=== PATIENT | female | born 1935 | race Caucasian/White ===

== ENCOUNTER 2025-03-18 13:50 | Outpatient (CLI) | payer MEDICARE, BC, SELFPAY | END 2025-03-18 13:51 | disposition home or self-care (01) | LOC: ANHAUDIO 13:50 | PROVIDERS: PCP Family Medicine; Visit Provider Family Medicine | DX: H90.3 Sensorineural hearing loss, bilateral (principal); H74.8X3 Other specified disorders of middle ear and mastoid, bilateral; H61.23 Impacted cerumen, bilateral; Z97.4 Presence of external hearing-aid | CPT/HCPCS: 92557; 92567; 99199 ==

== ENCOUNTER 2025-03-24 15:23 | Outpatient (RCR) | payer SELFPAY | END 2025-04-21 23:59 | disposition home or self-care (01) | LOC: ANHAUDIO 15:23 | PROVIDERS: PCP Family Medicine; Visit Provider Family Medicine | DX: Z46.1 Encounter for fitting and adjustment of hearing aid (principal) | CPT/HCPCS: V5267 ==

== ENCOUNTER 2025-04-18 07:23 | Outpatient (RCR) | payer MEDICARE, BC, SELFPAY ==
--- NOTE | 2025-03-10 09:42 | WNDPHOTO ---
PHOTO ONLY - See Nursing Notes and/ or assessments for documentation.
[2025-03-10 10:08] VITALS: BMI 21.2
== END 2025-05-26 09:59 | disposition home or self-care (01) ==
LOC: ANHWOC 07:23
PROVIDERS: PCP Family Medicine; Visit Provider Family Medicine
DX: S81.802A Unspecified open wound, left lower leg, initial encounter (principal)
CPT/HCPCS: 99212; 99213; 99214; G0463

== ENCOUNTER 2025-06-03 12:02 | Outpatient (CLI) | payer MEDICARE, BC, SELFPAY ==
[2025-06-03 13:27] LABS: Hematocrit 44.5 % (37.0-47.0); Hemoglobin 14.7 g/dL (12.0-15.0); Immature Granulocyte Percent A 0.2 % (0-0.5); Lymphocytes Absolute Auto 1.52 K/mm3 (0.9-3.2); Mean Corpuscular HGB Conc 33.0 g/dl (32-36); Mean Corpuscular Hemoglobin 34.1 pg (26-34); Mean Corpuscular Volume 103.2 fl (80-100); Nucleated Red Blood Cells Absolute Auto 0.000 K/mm3 (0.0-0.012); Nucleated Red Blood Cells Perc 0.0 % (0.0-0.2); Platelet Count Result 175 k/mm3 (150-375); Red Blood Count 4.31 M/mm3 (4.2-5.4); White Blood Count 6.2 K/mm3 (4.5-10.0)
[2025-06-03 13:47] LABS: Add Urine Microscopic? YES; Appearance Urine Clear (Clear); Glucose Urine UA Negative (Negative); Leukocyte Esterase Ur Trace LEU/UL (Negative); Need Manual Microscopic Reviewed; Nitrate Urine Negative (Negative); Non Pathogenic Casts 0-2; Specific Grav Ur 1.005 (1.001-1.035)
[2025-06-03 14:10] LABS: Alanine Aminotransferase 39 U/L (6-35); Albumin Level 4.4 g/dL (3.5-5.1); Alkaline Phosphatase 100 U/L (38-126); Anion Gap 9 mmol/L (4-12); Aspartate Amino Transferase 47 U/L (14-36); Bilirubin,Total 0.8 mg/dL (0.2-1.3); Blood Urea Nitrogen 30 mg/dL (7-17); Calcium 10.0 mg/dL (8.4-10.2); Carbon Dioxide 27 mmol/L (22-30); Chloride 100 mmol/L (98-107); Cholesterol 210 mg/dL (0-200); Estimated Glomerular Filt Rate 42; Glucose 111 mg/dL (65-110); HDL Direct 76 mg/dL; Magnesium 2.2 mg/dL (1.6-2.3); Potassium 4.6 mmol/L (3.4-5.0); Sodium 136 mmol/L (137-145); Total Protein 7.6 g/dL (6.3-8.2); Triglycerides 76 mg/dL (<150)
[2025-06-03 14:46] LABS: Thyroid Stimulating Hormone 1.480 uIU/mL (0.465-4.680)
[2025-06-03 15:04] LABS: Vitamin B12 460.0 pg/mL (239-931)
== END 2025-06-03 12:03 | disposition home or self-care (01) ==
PROVIDERS: Nurse Practitioner Family; PCP Family Medicine; Visit Provider Family Medicine
DX: R30.0 Dysuria (principal); I49.5 Sick sinus syndrome; I10 Essential (primary) hypertension; E78.5 Hyperlipidemia, unspecified; R60.9 Edema, unspecified; Z79.899 Other long term (current) drug therapy
CPT/HCPCS: 36415; 80053; 80061; 81001; 82306; 82607; 83735; 84443; 85025; 87086

== ENCOUNTER 2025-06-08 16:27 | Emergency (ER) | payer MEDICARE, BC, SELFPAY ==
--- OUTSIDE RECORDS SUMMARY | 2024-12-16 04:15 | XMS_ITS ---
Author Organization [facility] Address [address] [place] [address] Care Team Providers Care Sand Caster Apprentice Name Role Phone Marge Fragoso MDh Primary Care Provider Unavailab Paul Norris Unavailable [phone] Allergies Allergen (clinical drug ingredient) Drug/Non Drug [...] Provider Diagnosis [facility] [address] [facility] [address] [place] [address] 12/16/2024 Paul Fragoso Essential hypertensi on I10 [...] * Kell BEYDOB:1935 ( 89 yo F)Acc No.[id number]:12/16/2024 Progress Notes Patient: Kell GALARZA Provider: Brian Fragoso M.D., Nerissa :1935 A ge:89 Y S ex:Female Date:12/16/2024 Address:[address] [place] [address] Pcp:Paul Fragoso MD Subjective: * Chief Complaints: [...] Osteoporosis, Lymphedema idiopathic r arm, Former smoker, [facility] dwp 07/01, Abnormal ECG, Ceellulitis r [...] Electronic signature of Paul Fragoso MD, FACP, [id number] on 06/08/2025 at 06:09 PM EST Sign off status: Pending * Provider: Brian Fragoso M.D., F.A.C.P. Date: 0 12/16/2024 Generated for Andrewsi aneta/Bibiana/eTransmitting on: 1 08/08/2024 06:09 PM EST History and Physical Notes * [...]
--- NOTE | ~2025-06-08 | XR_ITS ---
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 Findings: No acute fracture or malalignment. Moderate to severe tricompartmental degenerative changes with small effusion. Soft tissues unremarkable. Impression: No acute fracture or malalignment. Reviewed, dictated and finalized at location P. OGRAPHIC PRINTING MACHINIST Impression: No acute fracture or malalignment.
--- NOTE | ~2025-06-08 | XR_ITS ---
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 Findings: There are remote appearing fractures of the distal radius and ulna. No acute fracture is identified. Moderate degenerative changes noted of the carpal joints with severe degenerative changes of the first metacarpal carpal joint. Soft tissue swelling is noted. Impression: No acute fracture or malalignment. Reviewed, dictated and finalized at location P. SCREEN FRAME ASSEMBLER Impression: No acute fracture or malalignment.
--- NOTE | ~2025-06-08 | XR_ITS ---
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 Findings: Nondisplaced left intertrochanteric fracture. Moderate degenerative changes. Soft tissues unremarkable. Impression: Left intertrochanteric fracture Reviewed, dictated and finalized at location P. DHOUSE FIRER/FIREMAN Impression: Left intertrochanteric fracture
--- NOTE | ~2025-06-08 | XR_ITS ---
EXAMINATION: XR shoulder LT min 2V, 06/08/2025 17:45 LICENSED PSYCHOLOGIST DIRECTOR HISTORY: pain s/p fall COMPARISON: No comparisons available. Findings: No acute fracture or malalignment. Moderate degenerative changes. Soft tissues unremarkable. Impression: No acute fracture or malalignment. Reviewed, dictated and finalized at location P. NSED PSYCHOLOGIST DIRECTOR Impression: No acute fracture or malalignment.
--- NOTE | ~2025-06-08 | XR_ITS ---
EXAMINATION: XR elbow LT min 3V, 06/08/2025 17:45 AMMUNITION STORAGE SUPERINTENDENT HISTORY: L elbow pain s/p fall COMPARISON: No comparisons available. Findings: There is a healing impacted comminuted appearing fracture of the supracondylar humerus. There is a displaced comminuted fracture of the proximal ulna with intra-articular extension. There are severe degenerative changes. Soft tissue swelling is noted. Impression: Fractures detailed above Reviewed, dictated and finalized at location P. MUNITION STORAGE SUPERINTENDENT Impression: Fractures detailed above
--- NOTE | ~2025-06-08 | XR_ITS ---
EXAMINATION: XR chest 1V portable COMPARISON: No comparisons available. HISTORY: pre op FINDINGS: The lungs are clear, no effusion. No pneumothorax. Heart is normal size. Mediastinal and hilar contours are within normal limits. Bony thorax no acute abnormality. Miscellaneous: None Impression: No acute cardiopulmonary abnormality. Reviewed, dictated and finalized at location P. ING MACHINE OPERATOR Impression: No acute cardiopulmonary abnormality.
[2025-06-08 16:26] VITALS: BP 98/59; PULSE 66; RESP 20; TEMP 36.7; O2SAT 98
--- NOTE | 2025-06-08 16:36 | ED.FALL ---
HPI - Fall General Chief Complaint: Fall <KYLE Sun Last Filed: 06/08/25 19:44> Stated Complaint: fall <KYLE Sun Last Filed: 06/08/25 19:44> Source: patient <KYLE Sun Last Filed: 06/08/25 19:44> Mode of arrival: EMS <KYLE Sun Last Filed: 06/08/25 19:44> Limitations: no limitations <KYLE Sun Last Filed: 06/08/25 19:44> History of Present Illness HPI Narrative: Patient is an 89-year-old female who presents the ED via EMS with report of a fall. Patient reports she was working out in her garden when she tripped and fell onto her left side. Denies hitting head or losing consciousness. Denies syncope/dizziness. Complains of pain and swelling to left elbow, pain to L hip. EMS commented on slight external rotation of left lower extremity. Patient denies numbness. Denies any other areas of pain. She is on Eliquis 2.5 mg b.i.d.. History of AFib and pacemaker. <KYLE Sun Last Filed: 06/08/25 19:44> Related Data Home Medications: Home Medications ?Medication ?Instructions ?Recorded ?Confirmed ?Last Taken ?Type biotin 5 mg tablet 5 mg PO DAILY 03/03/25 06/03/25 03/10/25 History valacyclovir 500 mg tablet 500 mg PO DAILY 03/03/25 06/03/25 03/10/25 History <KYLE Sun Last Filed: 06/08/25 19:44> Allergies/Adverse Reactions: Allergies Allergy/AdvReac Type Severity Reaction Status Date / Time lidocaine Allergy Intermediate Rash Verified 06/08/25 16:45 bee venom protein (honey Allergy Mild Drowsy Verified 06/08/25 16:45 bee) (bees) latex Allergy Mild Drowsy Verified 06/08/25 16:45 <KYLE Sun Last Filed: 06/08/25 19:44> Review of Systems Review of Systems: All systems reviewed & are unremarkable except as noted in HPI. <Jacqui Bragg PA-C - Last Filed: 06/08/25 19:44> All systems reviewed & are unremarkable except as noted in HPI and below <Jacqui Bragg PA-C - Last Filed: 06/08/25 19:44> PMFSH Social History Social History: Social History Smoking status: Never smoker <Jacqui Bragg PA-C - Last Filed: 06/08/25 19:44> Exam Narrative: GENERAL: Well appearing, well-nourished, non-toxic, in no acute distress. HEAD: Normocephalic, atraumatic. RESPIRATORY: Airway patent, respirations nonlabored. Clear to auscultation bilaterally, no rales, rhonchi, wheezing. CARDIOVASCULAR: Regular rate and rhythm without murmurs, rubs, or gallops. Peripheral pulses intact. ABDOMINAL: Soft, nontender, nondistended. Normoactive BS. MUSCULOSKELETAL: No significant shortening or external rotation of LLE appreciated. TTP over L lateral hip joint. Sensation intact throughout LLE. Large amount of swelling to olecranon of L elbow w/ focal tenderness and bruising, limited ROM. Mild TTP over L posterior proximal humerus. No significant tenderness throughout L wrist joint. Sensation intact throughout LUE. No appreciable tenderness throughout C/T/L midline spine. SKIN: Warm, dry, normal color. NEURO: A&O X3. Speech clear. Cranial nerves II-XII grossly intact. No ataxic movements. PSYCHIATRIC: Appropriate mood and affect. Normal interaction. <Jacqui Bragg PA-C - Last Filed: 06/08/25 19:44> Course COOK SOUP/PA Physician Supervision This visit was performed by both a physician and an Advanced Practice Provider. I performed all aspects of the Medical Decision Making as documented. <Jimmie Aguillon MD - Last Filed: 06/09/25 03:18> Vital Signs Vital signs: Vital Signs Temperature 36.7 C 06/08/25 16:26 Pulse Rate 66 06/08/25 16:26 Respiratory Rate 20 06/08/25 16:26 Blood Pressure 98/59 L 06/08/25 16:26 Pulse Oximetry 98 06/08/25 16:26 Oxygen Delivery Room Air 06/08/25 16:26 Temperature 36.7 C 06/08/25 16:26 Pulse Rate 63 06/08/25 18:06 Respiratory Rate 20 06/08/25 20:49 Blood Pressure 142/89 H 06/08/25 20:49 Pulse Oximetry 88 L 06/08/25 20:49 Oxygen Delivery Room Air 06/08/25 16:26 <Jacqui Bragg PA-C - Last Filed: 06/08/25 19:44> Vital Signs Temperature 36.7 C 06/08/25 16:26 Pulse Rate 66 06/08/25 16:26 Respiratory Rate 20 06/08/25 16:26 Blood Pressure 98/59 L 06/08/25 16:26 Pulse Oximetry 98 06/08/25 16:26 Oxygen Delivery Room Air 06/08/25 16:26 Temperature 36.7 C 06/08/25 16:26 Pulse Rate 63 06/08/25 18:06 Respiratory Rate 20 06/08/25 20:49 Blood Pressure 142/89 H 06/08/25 20:49 Pulse Oximetry 88 L 06/08/25 20:49 Oxygen Delivery Room Air 06/08/25 16:26 <Jimmie Aguillon MD - Last Filed: 06/09/25 03:18> MDM - Fall MDM Narrative Medical decision making narrative: Patient presented to ED s/p ground level mechanical fall, pain to L hip/L elbow. Denies HI/LOC. VSS upon arrival. Patient in NAD. X-ray of left hip showing nondisplaced intertrochanteric fracture of left femur X-ray of left elbow: healing impacted comminuted appearing fracture of the supracondylar humerus. There is a displaced comminuted fracture of the proximal ulna with intra-articular extension. X-ray of left wrist and left shoulder negative Patient neurovascularly intact. Good pulses and sensation throughout extremities Discussed case with Dr. Stack, orthopedics, reviewed imaging, recommended transfer for trauma eval Discussed case with Dr. Lowe, EDP @ [facility], accepted patient for transfer. Patient and family are in agreement with plan and need for transfer. Laboratory studies were obtained and grossly normal. EKG without concerning changes. Corcoran catheter placed. <Jacqui Bragg PA-C - Last Filed: 06/08/25 19:44> Medical Records Attestation: I reviewed the patient's medical records. <Jacqui Bragg PA-C - Last Filed: 06/08/25 19:44> Lab Data Attestation: I reviewed the patient's lab results. <Jacqui Bragg PA-C - Last Filed: 06/08/25 19:44> Result diagrams: 06/08/25 17:19 06/08/25 17:19 <Jacqui Bragg PA-C - Last Filed: 06/08/25 19:44> Labs: Lab Results 06/08/25 Range/Units 17:19 WBC 5.7 (4.5-10.0) K/mm3 RBC 3.95 L (4.2-5.4) M/mm3 Hgb 13.4 (12.0-15.0) g/dL Hct 41.0 (37.0-47.0) % MCV 103.8 H (80-100) fl MCH 33.9 (26-34) pg MCHC 32.7 (32-36) g/dl RDW 14.1 (11.5-14.5) % Plt Count 172 (150-375) k/mm3 MPV 10.6 H (7.4-10.4) fl Immature Gran % (Auto) 0.4 (0-0.5) % Neut % (Auto) 66.7 (45.5-73.1) % Lymph % (Auto) 23.4 (18.3-44.2) % [place] % (Auto) 6.7 (2.6-8.5) % Eos % (Auto) 1.4 (0-4.4) % Baso % (Auto) 1.4 H (0.2-1.2) % Lymph # (Auto) 1.32 (0.9-3.2) K/mm3 Independence # (Auto) 0.4 (0.1-0.6) K/mm3 Eos # (Auto) 0.1 (0-0.3) K/mm3 Baso # (Auto) 0.1 (0.0-0.1) K/mm3 Abs Immat Gran (auto) 0.02 (0.00-0.031) K/mm3 Absolute Neuts (auto) 3.8 (1.3-6.7) K/mm3 Absolute Nucleated RBC 0.000 (0.0-0.012) K/mm3 Nucleated RBC % 0.0 (0.0-0.2) % PT 13.9 (11.1-14.7) Seconds INR 1.1 APTT 25.5 (22.3-36.8) Seconds Sodium 138 (137-145) mmol/L Potassium 4.5 (3.4-5.0) mmol/L Chloride 102 (98-107) mmol/L Carbon Dioxide 29 (22-30) mmol/L Anion Gap 7 (4-12) mmol/L BUN 33 H (7-17) mg/dL Creatinine 1.39 H (0.7-1.0) mg/dL Estim Creat Clear Calc 21 ml/min Estimated GFR 36 L (59 - ) Glucose 197 H (65-110) mg/dL Calcium 9.9 (8.4-10.2) mg/dL Total Bilirubin 0.6 (0.2-1.3) mg/dL AST 29 (14-36) U/L ALT 23 (6-35) U/L Alkaline Phosphatase 85 (38-126) U/L Total Protein 6.8 (6.3-8.2) g/dL Albumin 4.0 (3.5-5.1) g/dL <Jacqui Bragg PA-C - Last Filed: 06/08/25 19:44> Lab Results 06/08/25 Range/Units 17:19 WBC 5.7 (4.5-10.0) K/mm3 RBC 3.95 L (4.2-5.4) M/mm3 Hgb 13.4 (12.0-15.0) g/dL Hct 41.0 (37.0-47.0) % MCV 103.8 H (80-100) fl MCH 33.9 (26-34) pg MCHC 32.7 (32-36) g/dl RDW 14.1 (11.5-14.5) % Plt Count 172 (150-375) k/mm3 MPV 10.6 H (7.4-10.4) fl Immature Gran % (Auto) 0.4 (0-0.5) % Neut % (Auto) 66.7 (45.5-73.1) % Lymph % (Auto) 23.4 (18.3-44.2) % Independence % (Auto) 6.7 (2.6-8.5) % Eos % (Auto) 1.4 (0-4.4) % Baso % (Auto) 1.4 H (0.2-1.2) % Lymph # (Auto) 1.32 (0.9-3.2) K/mm3 Independence # (Auto) 0.4 (0.1-0.6) K/mm3 Eos # (Auto) 0.1 (0-0.3) K/mm3 Baso # (Auto) 0.1 (0.0-0.1) K/mm3 Abs Immat Gran (auto) 0.02 (0.00-0.031) K/mm3 Absolute Neuts (auto) 3.8 (1.3-6.7) K/mm3 Absolute Nucleated RBC 0.000 (0.0-0.012) K/mm3 Nucleated RBC % 0.0 (0.0-0.2) % PT 13.9 (11.1-14.7) Seconds INR 1.1 APTT 25.5 (22.3-36.8) Seconds Sodium 138 (137-145) mmol/L Potassium 4.5 (3.4-5.0) mmol/L Chloride 102 (98-107) mmol/L Carbon Dioxide 29 (22-30) mmol/L Anion Gap 7 (4-12) mmol/L BUN 33 H (7-17) mg/dL Creatinine 1.39 H (0.7-1.0) mg/dL Estim Creat Clear Calc 21 ml/min Estimated GFR 36 L (59 - ) Glucose 197 H (65-110) mg/dL Calcium 9.9 (8.4-10.2) mg/dL Total Bilirubin 0.6 (0.2-1.3) mg/dL AST 29 (14-36) U/L ALT 23 (6-35) U/L Alkaline Phosphatase 85 (38-126) U/L Total Protein 6.8 (6.3-8.2) g/dL Albumin 4.0 (3.5-5.1) g/dL <Jimmie Aguillon MD - Last Filed: 06/09/25 03:18> Imaging Data Attestation: I personally reviewed and interpreted this imaging study as follows: <Jacqui Bragg PA-C - Last Filed: 06/08/25 19:44> Radiologist's impression: ITS Impressions Elbow X-Ray 06/08/25 18:12 Impression: Fractures detailed above Hip/Pelvis X-Ray 06/08/25 18:13 Impression: Left intertrochanteric fracture Shoulder X-Ray 06/08/25 18:14 Impression: No acute fracture or malalignment. Wrist X-Ray 06/08/25 18:14 Impression: No acute fracture or malalignment. Chest X-Ray 06/08/25 19:01 Impression: No acute cardiopulmonary abnormality. <Jacqui Bragg PA-C - Last Filed: 06/08/25 19:44> ECG Data EKG #1: Attestation: I personally reviewed and interpreted this ECG as follows: <Jacqui Bragg PA-C - Last Filed: 06/08/25 19:44> ECG completion date: 06/08/25 <Jacqui Bragg PA-C - Last Filed: 06/08/25 19:44> ECG completion time: 19:07 <Jacqui Bragg PA-C - Last Filed: 06/08/25 19:44> EKG Interpretation: normal rate (60), sinus rhythm and no ST changes <Jacqui Bragg PA-C - Last Filed: 06/08/25 19:44> Pacemaker function: normal pacer function <KYLE Sun Last Filed: 06/08/25 19:44> Discharge Plan Discharge Clinical Impression: Fall from ground level, Closed intertrochanteric fracture of femur, Fracture of proximal end of left ulna <KYLE Sun Last Filed: 06/08/25 19:44> Patient Disposition: Acute Care Hospital <VANESA SunC - Last Filed: 06/08/25 19:44> Condition: Stable <KYLE Sun Last Filed: 06/08/25 19:44> Patient Language: Chilean <KYLE Sun Last Filed: 06/08/25 19:44> Prescriptions: No Action valacyclovir 500 mg tablet 500 mg PO DAILY biotin 5 mg tablet 5 mg PO DAILY Eliquis 2.5 mg tablet 2.5 mg PO BID Qty: 180 1RF atorvastatin [Lipitor] 40 mg tablet 40 mg PO DAILY Qty: 90 1RF olmesartan 20 mg tablet 20 mg PO DAILY Qty: 90 1RF verapamil 180 mg tablet extended release 180 mg PO DAILY Qty: 90 1RF flecainide 100 mg tablet 100 mg PO Q12H Qty: 180 1RF <KYLE Sun Last Filed: 06/08/25 19:44> Follow-up/Referrals: Alexandr Peres MD [Primary Care Provider, Family Practice] <KYLE Sun Last Filed: 06/08/25 19:44>
--- OUTSIDE RECORDS SUMMARY | 2025-06-08 17:09 | XMS_ITS | Clinical Summary ---
Author Organization [facility] [address] [facility] [address] Address [address] [place] [address] Care Team Providers Care Salesperson [employer] Name Role Phone Alexandr Peres MD Primary Care Provider [phone] Allergies Active Allergy Reactions Criticality Noted Date Comments Venom-Honey Bee Unknown 03/25/2025 Medications Jublia 10 % solution with applicator APPLY TO AFFECTED TOE NAILS AND FINGER NAILS EVERY EVENING 01/20/2025 Active Eliquis 2.5 mg tablet Take 1 tablet (2.5 mg total) by mouth 2 (two) times a day 01/29/2025 Active verapamil SR (CALAN SR) 180 mg CR tablet Take 1 tablet (180 mg total) by mouth daily 02/14/2025 Active atorvastatin (LIPITOR) 40 mg tablet Take by mouth nightly 03/20/2025 Active flecainide (TAMBOCOR) 100 mg tablet Take 1 tablet (100 mg total) by mouth 2 (two) times a day 12/13/2024 Active olmesartan (BENICAR) 20 mg tablet Take 1 tablet (20 mg total) by mouth daily Active Active Problems Problem Noted Date Diagnosed Date Essential hypertension 03/25/2025 Mixed hyperlipidemia 03/25/2025 Chronic anticoagulation 03/25/2025 Cardiac pacemaker in situ 03/25/2025 Overview (03/25/2025): Medtronic Casco Dual Pacemaker. Dx; SSS, PAF. DOI 06/24/2020-elsewhere. Carelink remote. 03/25/25-requested remote transfer. PAF (paroxysmal atrial fibrillation) 03/25/2025 Cardiomyopathy 03/25/2025 Lipid screening 03/25/2025 Encounters Date Type Department Care Team Description 03/31/2025 Telephone [facility] [address] [place] [phone] Richard Hdez MD 03/25/2025 11:30 AM CDT Office Visit [facility] [address] [place] [phone] Richard Hdez MD Lipid screening (Primary Dx); Cardiomyopathy, unspecified type (HCC); PAF (paroxysmal atrial fibrillation); Cardiac pacemaker in situ; Chronic anticoagulation; Mixed hyperlipidemia; Essential hypertension 03/25/2025 11:00 AM CDT Ancillary Procedure [address] [address] SSS (sick sinus syndrome) (HCC); Atrial fibrillation, unspecified type (HCC); Pacemaker 03/25/2025 Orders Only [facility] [address] [place] [phone] Richard Hdez MD SSS (sick sinus syndrome) (HCC) (Primary Dx); Atrial fibrillation, unspecified type (HCC); Pacemaker 03/24/2025 Telephone [facility] [address] [place] [phone] Richard Hdez MD 03/24/2025 Telephone [facility] [address] [place] [phone] Richard Hdez MD 03/24/2025 Telephone [facility] [address] [place] [phone] Richard Hdez MD 03/21/2025 Telephone [facility] [address] [place] [phone] Richard Hdez MD Medical Records Request; Scheduling Appointments from Last 3 Months Surgical History Surgery Date Site/Laterality Comments INSERT / REPLACE / REMOVE PACEMAKER Medical History Medical History Date Comments Cardiomyopathy Atrial fibrillation (HCC) Hypertension Hyperlipidemia Sick sinus syndrome (HCC) Chronic kidney disease Family History Medical History Relation Name Comments Heart disease Father Brain Aneurysm Mother Relation Name Status Comments Father Mother Social History Tobacco Use Types Packs/Day Years Used Date Smoking Tobacco: Unknown Tobacco Cessation:Counseling Given: Not Answered Comments Unknown Sex and Gender Information Value Date Recorded Sex Assigned at Not on file Legal Sex Female 9:40 AM CDT Gender Identity Not on file Sexual Orientation Not on file Last Filed Vital Signs Vital Sign Reading Time Taken Comments Blood Pressure 122/70 03/25/2025 11:22 AM CDT Pulse 76 03/25/2025 11:22 AM CDT Temperature - - Respiratory Rate 14 03/25/2025 11:22 AM CDT Oxygen Saturation 94% 03/25/2025 11:22 AM CDT Inhaled Oxygen Concentration - - Weight 53.1 kg (117 lb) 03/25/2025 11:22 AM CDT Height 157.5 cm (5' 2) 03/25/2025 11:22 AM CDT Body Mass Index 21.4 03/25/2025 11:22 AM CDT Plan of Treatment Health Maintenance Due Date Last Done Comments Depression Screening 1935 Osteoporosis Screening-Bone Density Scan 1935 DTaP/Tdap/Td Vaccine (1 - Tdap) 1948 Hepatitis B Screening 10/05/1955 Pneumococcal vaccine 65+ (1 of 1 - PCV) 10/05/1987 Zoster Vaccine (1 of 2) 10/05/1987 Well Visit 65+ 2002 Influenza Vaccine (#1) 2025 Fall Risk Assessment 03/25/2026 03/25/2025 Procedures Procedure Name Priority Date/Time Associated Diagnosis Comments ELECTROCARDIOGRAM REPORT Routine 025 12:47 PM CDT Cardiomyopathy, unspecified type (HCC) POCT LIPID PANEL Routine 03/25/2025 11:3 1 AM CDT Lipid screening DEVICE CHECK - IN OFFICE Routine 025 11:18 AM CDT SSS (sick sinus syndrome) (HCC) Atrial fibrillation, unspecified type (HCC) Pacemaker from Last 3 Months Results * Electrocardiogram Report (03/25/2025 12:47 PM CDT) Richard Hdez MD ECG ORDERABLES Edited Re sult - Final * (ABNORMAL) POCT lipid panel (03/25/2025 11:31 AM CDT) Cholesterol, POC 193 <200 MG/DL HDL, POC 59 >=40 mg/dL Triglycerides, POC 223(A) <=149 mg/dL LDL Cholesterol POC 90 <=129 mg/dL Chol/HDL Ratio, POC 3.3 NONE Non-HDL Cholesterol, POC 134 NONE mg/dL Cholesterol Total, POC 193 30 - 199 mg/dL Capillary blood 03/25/2025 1 1:31 AM CDT Richard Hdez MD POINT OF CARE TEST ORDERA BLES Final Result * DEVICE CHECK - IN OFFICE (03/25/2025 11:18 AM CDT) Anatomical Region Laterality Modality Other Narrative 03/25/2025 1:26 PM CDT Medtronic Dalia Dual Pacemaker. Dx; SSS, PAF. DOI 06/24/2020-elsewhere. Carelink remote. 03/25/25-requested remote transfer. Supervising MD: Dr Hdez. Office DDD Pacemaker evaluation demonstrated appropriate device function. Left pectoral incision well healed without signs of infection noted. Battery function: 3.0 V, 8.6 years remaining battery life to SHIRA. Appropriate lead measurements noted. Presenting rhythm- AP VS. Underlying rhythm- V sensed, junctional/bradycardia. AP- 99.8%, SLP- 1.6%. 1 Atrial high rate episode noted, iegm Atach lasting 6 minutes in duration. No Ventricular high rate episodes noted. Medications; Eliquis, flecainide, verapamil. Atrial amplitude increased to 2.0 V. See scanned report. Office device f/u expected in one year. CareLink remote f/u 07/02/2025. Zonia Rice, RN us Richard Hdez MD [facility] Final Result from Last 3 Months Insurance [facility] OOS MEDICARE Care Teams Salesperson [employer] Relationship Specialty Start Date End Date Alexandr Peres MD [address] [place] [address] PCP - General Family Practice 03/25/25
--- OUTSIDE RECORDS SUMMARY | 2025-06-08 17:09 | XMS_ITS | Patient Health Record ---
Author Organization [facility] [employer] [facility] Address [address] [place] [address] Care Team Providers Care Rug Hooker Name Role Phone PERFECTO BATEMAN, DOLA Primary Care Provider UnavailMarko Knapp Unavailable [phone] Allergies Allergen (clinical drug ingredient) Drug/Non Drug Allergy documented on EMR Reaction Allergy Type Onset Date Status spironolactone Aldactone Unknown Drug Allergy Ac tive Penicillin Unknown Drug Allergy Active Reason For Referral No Information Medications Medication SIG (Take, Route, Frequency, Duration) Notes Start Date End Date Status Aspir-Low 81 MG 1 tablet Orally Once a day Active Ocuvite - Orally QD Active Biotin 5000 MCG 1 capsule Orally Onc e a day Active Olmesartan Medoxomil 20 MG 1 tablet Oral ly Once a day; Duration: 30 day(s) Active Eliquis 2.5 MG One tablet Orally Tw ice a day Active Flecainide Acetate 50 MG One tablet Oral ly Twice a day Active Verapamil HCl ER 180 MG 1 tablet Orally Once a day; Duration: 30 day(s) Active valACYclovir HCl 500 MG 1 tablet Orally Once a day; Duration: 10 day(s) Active Atorvastatin Calcium 40 MG 1 tablet Oral ly Once a day Active amLODIPine Besylate 10 MG 1 tablet Orall y Once a day Active Vitamin B-12 1000 MCG 1 tablet Orally On ce a day Active hydroCHLOROthiazide 25 MG 1 tablet in th e morning Orally Once a day; Duration: 30 day(s) Active Vitamin D 1000 UNIT 1 capsule Orally Onc e a day Active Immunizations Vaccine Route Administration Date Status Comme nts zzPPA Unknown 10/13/2016 Pending Social History Tobacco Use: Social History Observation Description Date Details (start date - stop date) Never Smoker NA - NA Tobacco Use/Smoking Question Answer Notes Status: nonsmoker Alcohol Screen Question Answer Notes Did you have a drink contain ing alcohol in the past year? Yes How often did you have a dri nk containing alcohol in the past year? 4 or more times a week (4 points) How many drinks did you have on a typical day when you were drinking in the past year? 1 or 2 drinks (0 point) How often did you have 6 or more drinks on one occasion in the past year? Never (0 point) Points 4 Interpretation Positive Problems Problem Type SNOMED Code ICD Code Onset Dates Problem Status W/U Status Risk Notes Problem Flatulence, eructation and gas pain (824077768) Flatulence, eructation and gas pain (R14.3) Active confirmed Plan Of Treatment No Information Insurance Providers Payer Name Payer Address Payer Phone Subscriber Number Group Number Insured Name Patient Relationship to Insured Coverage Start Date Coverage End Date MEDICARE PRIMARY WPS-[employer] [address] [place] [address] [id number] JOSE BUSH Self - patient is the insured 3 BC [address] [place] [address] [id number] JOSE BUSH Self - patient is the insured 7 7 BCBS [address] [place] [address] [id number] JOSE BUSH Self - patient is the insured 3 Medical (General) History Medical History History ICD Code Hypertension Hyperlipidemia Osteoporosis Basal cell carcinoma Lymphedema Hypercholesterolemia Surgical History Surgery Date(Month/Year) Cataract removal Achilles tendon repair Left wrist fracture
--- OUTSIDE RECORDS SUMMARY | 2025-06-08 17:09 | XMS_ITS | Patient Health Record ---
Author Organization [facility] Address [address] [facility] [address] [place] [address] Care Team Providers Care On Air Host Name Role Phone Fouzia BATEMAN, Norman Primary Care Provider Unavailab johnie OdomlucianaCricket Unavailable [phone] Reason For Referral No Information Medications Medication SIG (Take, Route, Frequency, Duration) Notes Start Date End Date Status Vitamin D 400 UNIT Orally A ctive Biotin 3 MG Orally Active Atorvastatin Calcium 40 MG 1 tablet Oral ly Once a day Active amLODIPine Besylate 10 MG 1 tablet Orall y Once a day Active Aspir-81 81 MG 1 tablet Orally Once a day Active Immunizations Vaccine Route Administration Date Status Comme nts Pneumococcal Unknown 10/26/2015 Administered Influenza Unknown 04/26/2015 Pending Problems Problem Type SNOMED Code ICD Code Onset Dates Problem Status W/U Status Risk Notes Problem 595392688 Bilateral primar y osteoarthritis of knee (M17.0) Active confirmed Problem 560203617363499 Pain in right kn ee (M25.561) Active confirmed Problem 82919599 Pain in left kne e (M25.562) Active confirmed Problem 36032032 Unsteadiness on feet (R26.81) Active confirmed Problem 54220346 Pain in left hip (M25.552) Active confirmed Problem 15171613 *Osteoarthritis unspecified, unspecified site (M19.90) Active confirmed Problem 6203091 Trochanteric bursitis, 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) Active confirmed Plan Of Treatment No Information Insurance Providers Payer Name Payer Address Payer Phone Subscriber Number Group Number Insured Name Patient Relationship to Insured Coverage Start Date Coverage End Date MEDICARE WPS [address] [place] [address] [id number] Kell Bey Self - patient is the insured [facility] [address] [place] [address] [id number] Kell Bey Self - patient is the insured Medical (General) History Medical History History ICD Code hypertension cholesterol Surgical History Surgery Date(Month/Year) tonsillectomy and adenoidectomy
--- OUTSIDE RECORDS SUMMARY | 2025-06-08 17:09 | XMS_ITS | Patient Health Record ---
Author Organization [facility] Address [address] [place] [address] Care Team Providers Care Transmission Repairer Name Role Phone Fouzia BATEMAN, Strong Primary Care Provider Unavailab Paul Norris Unavailable [phone] Allergies Allergen (clinical drug ingredient) Drug/Non Drug Allergy documented on EMR Reaction Allergy Type Onset Date Status spironolactone Aldactone tomás Drug Allergy Ac tive penicillin G Penicillin G Sodium Unknown Drug Allergy Active Results Component Value Reference Range Notes ELECTROCARDIOGRAM, COMPLETE Reviewed date:08/11/2024 05:41:05 PM Interpretation: Performing Lab: Notes/Report: Ventricular Rate 72 BPM Atrial Rate 70 BPM P-R Interval 284 ms QRS Duration 96 ms Q-T Interval 596 ms QTC Calculation(Bazett) 652 ms Calculated P [place] 34 degrees Calculated R [place] 10 degrees Calculated T [place] 252 degrees Diagnosis Atrial-paced rhythm with prolonged AV conduction Nonspecific T wave abnormality Prolonged QT Abnormal ECG When compared with ECG of 27-JUL-2023 11:18, Nonspecific T wave abnormality, improved in Lateral leads QT has lengthened Confirmed by Jewel Ro ([id number]) on 08/11/2024 2:59:26 PM Signed by: Jewel Ro MD on 08/11/2024 2:59 PM CBC W/DIFF (outpatient) Reviewed date:11/22/2024 03:02:52 PM Interpretation: Performing Lab: Notes/Report: WBC 6.6 4.5 - 10.0 10e3/uL RBC 4.23 3.9 - 5.1 10e6/uL HGB 14.3 11.7 - 16.0 g/dL HCT 44.5 34.1 - 44.3 % MCV 105.3 83.7 - 101.6 fL MCH 33.9 26.1 - 33.5 pg MCHC 32.2 30.0 - 35.3 g/dL RDW 13.8 10.5 - 15.5 % PLT CT 191 150 - 400 10e3/uL MPV 8.9 5.0 - 13.1 fL LYMPH% 20.8 17.4 - 48.2 % MONO% 8.2 3.0 - 10.5 % NEUT% 68.3 43.4 - 76.2 % EOS% 1.5 0.0 - 6.0 % BASO% 1.2 0.0 - 3.0 % ABS. LYMPH 1.40 1.2 - 3.0 10e3/uL ABS. MONO 0.50 0.15 - 0.80 10e3/uL ABS. NEUT 4.50 1.2 - 6.8 10e3/uL ABS. EOS 0.10 0.0 - 0.50 10e3/uL ABS. BASO 0.10 0.0 - 0.2 10e3/uL COMPREHENSIVE METABOLIC PANE L Reviewed date:11/22/2024 03:02:52 PM Interpretation: Performing Lab: Notes/Report: SODIUM 134 135 - 147 mmol/L POTASSIUM 4.3 3.5 - 5.5 mmol/L CHLORIDE 99 97 - 110 mmol/L CO2 31.0 18 - 33 mmol/L GLUCOSE 101 65 - 140 mg/dL FASTING: < 10 0 mg/dL BUN 29 7 - 25 mg/dL CREATININE 1.04 0.5 - 1.5 mg/dL BUN/CREAT RATIO 27.90 5.00 - 25.00 Ratio GFR 52 >= 60 mL/minute CALCIUM 10.4 8.5 - 10.5 mg/dL PROTEIN, TOTAL 6.8 6.1 - 8.1 g/dL ALBUMIN 4.4 3.4 - 5.1 g/dL GLOBULIN 2.4 1.7 - 3.7 g/dL A/G RATIO 1.8 0.6 - 3.1 Ratio ALKALINE PHOSPHATASE 108 40 - 150 IU/L SGOT (AST) 15 10 - 50 IU/L SGPT (ALT) 13 2 - 50 IU/L BILIRUBIN, TOTAL 0.5 0.0 - 1.2 mg/dL LIPID PANEL Reviewed date:06/18/2024 01:15:51 PM Interpretation: Performing Lab: Notes/Report: FASTING CHOLESTEROL 238 130 - 200 mg/dL TRIGLYCERIDES 153 10 - 149 mg/dL HDL 71.0 > 40 mg/dL CHOL/HDL RATIO 3.4 < 5.0 RATIO VLDL 31 18 - 41 mg/dL LDL 136 < 130 mg/dL COMPREHENSIVE METABOLIC PANE L Reviewed date:06/18/2024 01:15:51 PM Interpretation: Performing Lab: Notes/Report: FASTING SODIUM 140 135 - 147 mmol/L POTASSIUM 4.2 3.5 - 5.5 mmol/L CHLORIDE 102 97 - 110 mmol/L CO2 28.0 18 - 33 mmol/L GLUCOSE 113 65 - 140 mg/dL FASTING: < 10 0 mg/dL BUN 30 7 - 25 mg/dL CREATININE 1.36 0.5 - 1.5 mg/dL BUN/CREAT RATIO 22.10 5.00 - 25.00 Ratio GFR 38 >= 60 mL/minute CALCIUM 10.4 8.5 - 10.5 mg/dL PROTEIN, TOTAL 7.0 6.1 - 8.1 g/dL ALBUMIN 4.3 3.4 - 5.1 g/dL GLOBULIN 2.7 1.7 - 3.7 g/dL A/G RATIO 1.6 0.6 - 3.1 Ratio ALKALINE PHOSPHATASE 74 40 - 150 IU/L SGOT (AST) 18 10 - 50 IU/L SGPT (ALT) 17 2 - 50 IU/L BILIRUBIN, TOTAL 0.7 0.0 - 1.2 mg/dL CBC W/DIFF (outpatient) Reviewed date:06/18/2024 01:15:51 PM Interpretation: Performing Lab: Notes/Report: FASTING WBC 10.7 4.5 - 10.0 10e3/uL RBC 4.17 3.9 - 5.1 10e6/uL HGB 14.5 11.7 - 16.0 g/dL HCT 44.6 34.1 - 44.3 % MCV 107.1 83.7 - 101.6 fL MCH 34.8 26.1 - 33.5 pg MCHC 32.5 30.0 - 35.3 g/dL RDW 14.0 10.5 - 15.5 % PLT CT 212 150 - 400 10e3/uL MPV 8.6 5.0 - 13.1 fL LYMPH% 10.7 17.4 - 48.2 % MONO% 5.7 3.0 - 10.5 % NEUT% 82.9 43.4 - 76.2 % EOS% 0.6 0.0 - 6.0 % BASO% 0.1 0.0 - 3.0 % ABS. LYMPH 1.10 1.2 - 3.0 10e3/uL ABS. MONO 0.60 0.15 - 0.80 10e3/uL ABS. NEUT 8.90 1.2 - 6.8 10e3/uL ABS. EOS 0.10 0.0 - 0.50 10e3/uL ABS. BASO 0.00 0.0 - 0.2 10e3/uL HGB A1C Reviewed date:06/18/2024 01:15:51 PM Interpretation: Performing Lab: Notes/Report: FASTING HGB A1C 6.1 4.0 - 6.0 % 5.7% TO 6.4% IS DIAGNOSED PREDIABETES 6.5% OR HIGHER INDICATES DIABETES CPK Reviewed date:06/18/2024 01:15:50 PM Interpretation: Performing Lab: Notes/Report: FASTING CPK 49 45 - 235 IU/L Reason For Referral No Information Medications Medication SIG (Take, Route, Frequency, Duration) Notes Start Date End Date Status Aspir-81 81 MG 1 tablet Orally Once a day Active Ocuvite Orally Active Flecainide Acetate 50 mg 1 tablet Orally twice a day Active Verapamil HCl ER 180 MG 1 tablet Orally Once a day; Duration: 90 days Active Eliquis 2.5 MG TAKE 1 TABLET BY [...] e a day; Duration: 30 day(s) Active Immunizations Vaccine Route Administration Date Status Comme nts Arexvy Unknown 05/02/2023 Administered Covid Moderna Bivalent Unknown 04/26/2022 Administered Covid-19 Pfizer Unknown 08/18/2020 Administered Covid-19 Pfizer Unknown 09/08/2020 Administered Covid-19 Pfizer Unknown 05/13/2021 Administered Covid-19 Pfizer Unknown 04/18/2023 Administered Covid-19 Pfizer Unknown 04/03/2024 Administered Flu Vac Unknown 07/17/2010 Administered Flu Vac Unknown 04/20/2012 Administered friend who i s japanese professor Flu Vac Unknown 05/17/2013 Administered japanese professor s office Flu Vac High dose Unknown 05/07/[address] in [place] office Flu Vac High dose Unknown 04/21/2015 Administered Flu Vac High dose Unknown 05/24/2016 Administered Flu Vac High dose Unknown 05/17/2017 Administered Flu Vac High dose Unknown 05/29/2018 Administered Flu Vac High dose Unknown 04/30/2019 Administered Flu Vac High dose Unknown 03/17/2020 Administered Flu Vac High dose Unknown 04/22/2021 Administered Flu Vac High dose Unknown 04/06/2022 Administered Flu Vac High dose Unknown 04/11/2023 Administered Flu Vac High dose Unknown 04/03/2024 Administered Pneumovax ( < 64 yrs) Unknown 07/17/2001 Administered Prevnar > 65 Unknown 04/21/2015 Administered Shingrix Unknown 10/31/2017 Administered Shingrix Unknown 05/01/2018 Administered Zostavax Unknown 04/06/2012 Administered county Zostavax Unknown 10/28/2017 Administered Problems Problem Type SNOMED Code ICD Code Onset Dates Problem Status W/U Status Risk Notes Problem Hyperglycemia (99832061) Hyperglycemia (R73.9) Active confirmed Problem Hyperlipidemia (47433624) Other and unspecified hyperlipidemia (E78.5) Active confirmed Problem Osteoporosis (96965450) Osteoporosis (M81.0) Active confirmed Problem Essential hypertension (48383713) Essential hypertension (I10) Active confirmed Problem Ataxia (21535361) Ataxia (R27.0) Active confirm ed Problem Atrial fibrillation (92888224) Paroxysmal a-fib (I48.0) Active confirmed Problem Macrocytosis - no anemia (922548340) Macrocytosis without anemia (D75.89) Active confirmed Problem Abnormal ECG (682937644) Abnormal ECG (R94.31) Active confirmed Problem Basal cell carcinoma of skin (148418885) Basal cell carcinoma of other specified sites of skin (C44.91) Active confirmed Problem Lymphedema (689518890) Other lymphedema (I89.0) Active confirmed Problem Sacroiliitis (55844059) Sacroiliitis (M46.1) Active confirmed Problem Difficulty walking (336729744) Difficulty walking (R26.2) Active confirmed Problem Atherosclerosis of aorta (25054951) Aortic atherosclerosis (I70.0) Active confirmed Problem Chronic kidney disease stage 3A (disorder) (230471537) Stage 3a chronic kidney disease (CKD) (N18.31) Active confirmed Vital Signs Heart Rate 65 /min 11/21/2024 Respiratory Rate 12 /min 11/21/2024 Blood pressure diastolic 95 mm Hg 11/21/2024 Height 63 in 11/21/2024 Blood pressure systolic 140 mm Hg 11/21/2024 Weight 118 lbs 06/17/2024 BMI 20.9 kg/m2 06/17/2024 Encounters Encounter Location Date Provider Diagnosis [facility] [address] [place] [address] [address] [place] [address] 06/17/2024 Paul Fouzia Essential hypertensi on I10 ; Other and unspecified hyperlipidemia E78.5 ; Hyperglycemia R73.9 and Paroxysmal a-fib I48.0 [facility] [address] [place] [address] [address] [place] [address] [facility] walking R 26.2 ; Essential hypertension I10 ; Paroxysmal a-fib I48.0 ; Stage 3a chronic kidney disease (CKD) N18.31 ; Ataxia R27.0 and Aortic atherosclerosis I70.0 [facility] [address] [place] [address] [address] [place] [address] 07/16/2024 [facility] [address] [place] [address] [address] [place] [address] 07/22/2024 Paul Fouzia Assessments Encounter Date Diagnosis (ICD Code) Assessment Notes Treatment Notes Treatment Clinical Notes Section Notes 06/17/2024 Essential hypertension (ICD-10 - I10) 11/21/2024 Essential hypertension (ICD-10 - I10) 11/21/2024 Difficulty walking (ICD-10 - R26.2) already evaluated by neuro moving to [facility] encouraged to get training officer board certified and let them directcare 11/21/2024 Paroxysmal a-fib (ICD-10 - I48.0) 06/17/2024 Other and unspecified hyperlipidemia (ICD-10 - E78.5) 06/17/2024 Hyperglycemia (ICD-10 - R73.9) 11/21/2024 Stage 3a chronic kidney disease (CKD) (ICD-10 - N18.31) 11/21/2024 Ataxia (ICD-10 - R27.0) 06/17/2024 Paroxysmal a-fib (ICD-10 - I48.0) 11/21/2024 Aortic atherosclerosis (ICD-10 - I70.0) Plan Of Treatment Pending Test Test Name Order Date COLONOSCOPY AND BIOPSY 01/05/2016 HGB A1C 11/04/2021 VITAMIN B12 12/02/2022 MEASLES/RUBEOLA IGG 11/08/2018 Insurance Providers Payer Name Payer Address Payer Phone Subscriber Number Group Number Insured Name Patient Relationship to Insured Coverage Start Date Coverage End Date MEDICARE [address] [place], [place] [id number] Kell Bey Self - patient is the insured [address] [place], [place] [id number] Kell Bey Self - patient is the insured Medical (General) History Medical History History ICD Code hyperlipidemia diverticulosis hypertension basal cell carcinoma/?? melanoma it situ dr jaky mac r arm sadoff osteoporosis lymphedema idiopathic r arm Former smoker Z87.891 [facility] dwp 07/01 Abnormal ECG ceellulitis r ue 08/[address] paige afib dr ro ckd 3a Surgical History Surgery Date(Month/Year) cataracts achilles tendon r l wrist fx dr alegre
[2025-06-08] MEDS: fentaNYL CITRATE INJ (*CRX) 100 MCG/2 ML VIAL 25 MCG IV PUSH (17:23)
[2025-06-08 18:06] VITALS: BP 160/97; PULSE 63; RESP 15; O2SAT 97
--- NOTE | 2025-06-08 18:14 | ECG_ITS ---
Test Date: 2025-06-08 19:07:14 Measurements Intervals [place] Rate: 60 P: 263 KS: 288 QRS: -16 QRSD: 110 T: 138 QT: 440 QTc: 440 Interpretive Statements ELECTRONIC ATRIAL PACEMAKER LOW QRS VOLTAGE IN PRECORDIAL LEADS [QRS DEFLECTION < 1.0 mV IN CHEST LEADS] POSSIBLE ANTERIOR MYOCARDIAL INFARCTION , PROBABLY OLD [30 ms Q WAVE IN V3/V4, OR R < 0.2 mV IN V4] ABNORMAL RHYTHM ECG No previous ECG available for comparison Electronically Signed On 06-08-2025 20:00:33 [employer] by Krista Jerez M.D.
[2025-06-08 18:21] LABS: Hematocrit 41.0 % (37.0-47.0); Hemoglobin 13.4 g/dL (12.0-15.0); Immature Granulocyte Percent A 0.4 % (0-0.5); Lymphocytes Absolute Auto 1.32 K/mm3 (0.9-3.2); Mean Corpuscular HGB Conc 32.7 g/dl (32-36); Mean Corpuscular Hemoglobin 33.9 pg (26-34); Mean Corpuscular Volume 103.8 fl (80-100); Nucleated Red Blood Cells Absolute Auto 0.000 K/mm3 (0.0-0.012); Nucleated Red Blood Cells Perc 0.0 % (0.0-0.2); Platelet Count Result 172 k/mm3 (150-375); Red Blood Count 3.95 M/mm3 (4.2-5.4); White Blood Count 5.7 K/mm3 (4.5-10.0)
[2025-06-08 18:30] LABS: Alanine Aminotransferase 23 U/L (6-35); Albumin Level 4.0 g/dL (3.5-5.1); Alkaline Phosphatase 85 U/L (38-126); Anion Gap 7 mmol/L (4-12); Aspartate Amino Transferase 29 U/L (14-36); Bilirubin,Total 0.6 mg/dL (0.2-1.3); Blood Urea Nitrogen 33 mg/dL (7-17); Calcium 9.9 mg/dL (8.4-10.2); Carbon Dioxide 29 mmol/L (22-30); Chloride 102 mmol/L (98-107); Estimated CRCL calculation 21 ml/min; Estimated Glomerular Filt Rate 36; Glucose 197 mg/dL (65-110); Potassium 4.5 mmol/L (3.4-5.0); Sodium 138 mmol/L (137-145); Total Protein 6.8 g/dL (6.3-8.2)
[2025-06-08 18:34] LABS: INR 1.1; Prothrombin Time 13.9 Seconds (11.1-14.7)
[2025-06-08 18:35] LABS: Partial Thromboplastin Time 25.5 Seconds (22.3-36.8)
[2025-06-08] MEDS: MORPHINE SULFATE (*CRX) 4 MG/ML INJ 2 MG IV PUSH ×2 (20:03→20:47)
[2025-06-08] MEDS: ONDANSETRON INJ 4 MG/2 ML VIAL IV PUSH (20:03)
[2025-06-08 20:49] VITALS: BP 142/89; RESP 20; O2SAT 88
== END 2025-06-08 20:51 | disposition short-term general hospital (02) ==
PROVIDERS: Emergency Provider Physician Assistant; PCP Family Medicine
DX: S72.145A Nondisplaced intertrochanteric fracture of left femur, initial encounter for closed fracture (principal); S52.092A Other fracture of upper end of left ulna, initial encounter for closed fracture; I48.91 Unspecified atrial fibrillation; Z79.01 Long term (current) use of anticoagulants; Z95.0 Presence of cardiac pacemaker; W01.0XXA Fall on same level from slipping, tripping and stumbling without subsequent striking against object, initial encounter; Y93.H2 Activity, gardening and landscaping
CPT/HCPCS: 36415; 51702; 71045; 73030; 73080; 73110; 73502; 73564; 80053; 85025; 85610; 85730; 93005; 96374; 96375; 96376; 99285; J2270; J2405; J3010

== ENCOUNTER 2025-07-15 14:26 | Outpatient (CLI) | payer MEDICARE, BC, SELFPAY ==
--- OUTSIDE RECORDS SUMMARY | 2024-12-16 04:15 | XMS_ITS ---
Author Organization [facility] Address [address] [place] [address] Care Team Providers Care Rail Grinder Name Role Phone Marge Fragoso MDh Primary Care Provider Unavailab Paul Norris Unavailable [phone] Allergies Allergen (clinical drug ingredient) Drug/Non Drug Allergy documented on EMR Reaction Allergy Type Onset Date Status spironolactone Aldactone tomás Drug Allergy Ac tive penicillin G Penicillin G Sodium Unknown Drug Allergy Active REASON FOR VISIT 6 month f/u Medications Medication SIG (Take, Route, Frequency, Duration) Notes Start Date End Date Status Eliquis 2.5 MG TAKE 1 TABLET BY BENJY TWICE A DAY FOR 30 DAYS; Duration: 90 Active valACYclovir HCl 500 MG TAKE 1 TABLET BY MOUTH EVERY DAY; Duration: 90 Active Atorvastatin Calcium 40 MG 1 tablet Oral ly Once a day; Duration: 90 days Active Olmesartan Medoxomil 20 MG TAKE 1 TABLET BY MOUTH EVERY DAY Orally Once a day Active Biotin 5000 MCG 1 capsule Orally Onc e a day; Duration: 30 day(s) Active Aspir-81 81 MG 1 tablet Orally Once a day Active Ocuvite Orally Active Flecainide Acetate 50 mg 1 tablet Orally twice a day Active Verapamil HCl ER 180 MG 1 tablet Orally Once a day; Duration: 90 days Active Encounters Encounter Location Date Provider Diagnosis [facility] [address] [facility] [address] [place] [address] 12/16/2024 Paul Fragoso Essential hypertensi on I10 ; Other and unspecified hyperlipidemia E78.5 ; Macrocytosis without anemia D75.89 ; Hyperglycemia R73.9 and Paroxysmal a-fib I48.0 Assessments Encounter Date Diagnosis (ICD Code) Assessment Notes Treatment Notes Treatment Clinical Notes Section Notes 12/16/2024 Essential hypertension (ICD-10 - I10) 12/16/2024 Other and unspecified hyperlipidemia (ICD-10 - E78.5) 12/16/2024 Macrocytosis without anemia (ICD-10 - D75.89) 12/16/2024 Hyperglycemia (ICD-10 - R73.9) 12/16/2024 Paroxysmal a-fib (ICD-10 - I48.0) Plan Of Treatment No Information Progress Notes * Kell BEYDOB:1935 ( 89 yo F)Acc No.[id number]:12/16/2024 Progress Notes Patient: Kell GALARZA Provider: Brian Fragoso M.D., Nerissa :1935 A ge:89 Y S ex:Female Date:12/16/2024 Address:[address] [place] [address] Pcp:Paul Fragoso MD Subjective: * Chief Complaints: * 1 . 6 month f/u. * HPI: O ffice Visit: ... P atient is in for followup of chronic medical problems. They include. * ROS: O LD LABS REVIEWED As per HPI all other ROS negative . * Medical History: H yperlipidemia, Diverticulosis, Hypertension, Basal cell carcinoma/?? melanoma it situ dr jaky mac r arm sadoff, Osteoporosis, Lymphedema idiopathic r arm, Former smoker, [facility] dwp 07/01, Abnormal ECG, Ceellulitis r ue 08/03, Skin ca dr paige, Afib dr ceja, Ckd 3a. * Surgical History: c ataracts , achilles tendon r , l wrist fx dr alegre . * Family History: M other: 30 yrs, cerebral aneurysm. F ather: 94 yrs, old age. S ister: alive 82 yrs, colon ca, diagnosed with Cancer. D aughter: alive 59 yrs, well. S on: 56 yrs, ?? cancer icb aml. S on: alive 64 yrs, well. 2 son(s) , 1 daughter(s) . . * Social History: T obacco Use: T obacco Use/Smoking . D rugs/Alcohol: D rugs H ave you used drugs other than those for medical reasons in the past 12 months? No, Marijuana? No. A lcohol Screen D id you have a drink containing alcohol in the past year?: Yes, How often did you have a drink containing alcohol in the past year?: 4 or more times a week (4 points), How many drinks did you have on a typical day when you were drinking in the past year?: 1 or 2 drinks (0 point), How often did you have 6 or more drinks on one occasion in the past year?: Never (0 point), Points: 4, Interpretation: Positive. s moked for 20 yrs quit 35 yrs ago. * Medications: T aking Biotin 5000 MCG Capsule 1 capsule Orally Once a day , Taking Aspir-81 81 MG Tablet Delayed Release 1 tablet Orally Once a day , Taking Ocuvite Tablet Orally , Taking Flecainide Acetate 50 mg Tablet 1 tablet Orally twice a day , Taking Verapamil HCl ER 180 MG Tablet Extended Release 1 tablet Orally Once a day , Taking Eliquis 2.5 MG Tablet TAKE 1 TABLET BY MOUTH TWICE A DAY FOR 30 DAYS , Taking valACYclovir HCl 500 MG Tablet TAKE 1 TABLET BY MOUTH EVERY DAY , Taking Atorvastatin Calcium 40 MG Tablet 1 tablet Orally Once a day , Taking Olmesartan Medoxomil 20 MG Tablet TAKE 1 TABLET BY MOUTH EVERY DAY Orally Once a day , Medication List reviewed and reconciled with the patient * Allergies: P enicillin G Sodium, Aldactone: tomás. Objective: * Vitals: * P ast Orders: L ab:CBC W/DIFF (outpatient) (Order Date - 11/21/2024) (Collection Date & Time - 11/21/2024 02:29 PM) Value Reference Range WBC 6.6 4.5 - 10.0 - 10e3/uL RED BLOOD CELL COUNT 4.23 3.9 - 5.1 - 10e6/uL HEMOGLOBIN 14.3 11.7 - 16.0 - g/dL HEMATOCRIT 44.5 H 34.1 - 44.3 - % MCV 105.3 H 83.7 - 101.6 - fL MCH 33.9 H 26.1 - 33.5 - pg MCHC 32.2 30.0 - 35.3 - g/dL RDW 13.8 10.5 - 15.5 - % PLATELET COUNT 191 150 - 400 - 10e3/uL ABSOLUTE BASOPHILS 0.10 0.0 - 0.2 - 10e3/uL ABSOLUTE LYMPHOCYTES 1.40 1.2 - 3.0 - 10e3/uL ABSOLUTE EOSINOPHILS 0.10 0.0 - 0.50 - 10e3/u L MPV 8.9 5.0 - 13.1 - fL ABSOLUTE MONOCYTES 0.50 0.15 - 0.80 - 10e3/u L ABSOLUTE NEUTROPHILS 4.50 1.2 - 6.8 - 10e3/uL EOSINOPHILS 1.5 0.0 - 6.0 - % BASOPHILS 1.2 0.0 - 3.0 - % LYMPHOCYTES 20.8 17.4 - 48.2 - % MONOCYTES 8.2 3.0 - 10.5 - % NEUTROPHILS 68.3 43.4 - 76.2 - % L ab:COMPREHENSIVE METABOLIC PANEL (Order Date - 11/21/2024) (Collection Date & Time - 11/21/2024 02:29 PM) Value Reference Range GLUCOSE 101 65 - 140 - mg/dL BUN 29 H 7 - 25 - mg/dL CREATININE 1.04 0.5 - 1.5 - mg/dL BUN/CREAT RATIO 27.90 H 5.00 - 25.00 - Ratio eGFR 52 L >= 60 - mL/minute SODIUM 134 L 135 - 147 - mmol/L POTASSIUM 4.3 3.5 - 5.5 - mmol/L CHLORIDE 99 97 - 110 - mmol/L CO2 31.0 18 - 33 - mmol/L SGOT (AST) 15 10 - 50 - IU/L SGPT (ALT) 13 2 - 50 - IU/L BILIRUBIN, TOTAL 0.5 0.0 - 1.2 - mg/dL ALKALINE PHOSPHATSE 108 40 - 150 - IU/L CALCIUM 10.4 8.5 - 10.5 - mg/dL PROTEIN, TOTAL 6.8 6.1 - 8.1 - g/dL ALBUMIN 4.4 3.4 - 5.1 - g/dL GLOBULIN 2.4 1.7 - 3.7 - g/dL A/G RATIO 1.8 0.6 - 3.1 - Ratio * Examination: G eneral Examination: NECK/THYROID: n sahra supple carotid pulse normal, no JVD.?LUNGS: c lear to auscultation bilaterally. H EART: r egular rate and rhythm, S1, S2 normal, no S3, S4, no murmurs. E XTREMITIES: n o cyanosis, clubbing or edema. ? Assessment: * Assessment: 1. E ssential hypertension - I10 (Primary) 2 . O ther and unspecified hyperlipidemia - E78.5 3 . M acrocytosis without anemia - D75.89 4 .?Hyperglycemia - R73.9 5 . P aroxysmal a-fib - I48.0 Plan: * Treatment: * Images: * Electronic signature of Paul Fragoso MD, FACP, [id number] on 07/15/2025 at 03:40 PM EST Sign off status: Pending * Provider: Brian Fragoso M.D., F.A.C.P. Date: 0 12/16/2024 Generated for Andrewsi aneta/Bibiana/eTransmitting on: 1 03:40 PM EST History and Physical Notes * HPI (History of Present Illness) Category Sub-Category Detail Notes Category Not es Office Visit ... Patient is in fo r followup of chronic medical problems. They include Examination Category Sub-Category Detail Notes Category Not es General Examination NECK/THYROID: neck supple carotid pulse normal, no JVD HEART: regular rate and rhy thm, S1, S2 normal, no S3, S4, no murmurs LUNGS: clear to auscultatio n bilaterally EXTREMITIES: no cyanosis, clubbin g or edema
--- NOTE | ~2025-07-15 | DEXA_ITS ---
Bone Density Report Name: JOSE BUSH Age: 89 Sex: Female Ethnicity: White Date of : 1935 Indication: postmenopausal; screening for osteoporosis; height loss; prior fracture; Referring Provider: DE JANSEN Study: Bone densitometry was performed. Exam Date: July 15, 2025 Accession number: [id number] Bone Density: Region BMD T-score Z-score Classification AP Spine(L1, L2, L3) 0.692 -3.0 -0.2 Osteoporosis Femoral Neck (Right) 0.504 -3.1 -0.6 Osteoporosis Total Hip (Right) 0.718 -1.8 0.5 Osteopenia World Health Organization criteria for BMD impression classify patients as: Normal (T-score at or above -1.0), Osteopenia (T-score between -1.0 and -2.5), or Osteoporosis (T-score at or below -2.5). 10-year Fracture Risk: FRAX not reported because: Some T-score for Spine Total or Hip Total or Femoral Neck at or below -2.5 Prior hip or vertebral fracture Clinical Information Provided by Patient: Have had a previous hip or vertebral fracture Has had a low trauma fracture Patient maximum height was 65.0 Menopause Age: 55 Drinks caffeinated beverages Onset of menses at age 14 Number of children 3 Impression: The patient has established osteoporosis, based on the Right Femoral Neck T-score and the existence of a prior fracture. The patient has risk factors, including: previous fracture. Discussion: HIGH RISK OF FRACTURE. BONE DENSITY IS UNDESIRABLY LOW AT ONE OR MORE SKELETAL SITES, CONSISTENT WITH POSTMENOPAUSAL OSTEOPOROSIS. This patient's lowest T-score, in a patient who has previously fractured, meets the World Health Organization's (WHO) criteria for severe osteoporosis. In untreated patients, the risk of osteoporotic fracture increases approximately two-fold for each 1.0 SD decrease in T-score. Low bone density is not the only risk factor for fracture; also consider factors such as patient's age, frailty or poor health, risk of falling, risk of injury, previous osteoporotic fracture, family history of osteoporosis, cigarette smoking, low body weight, etc. Not everyone with low bone mineral density has osteoporosis; osteomalacia and other metabolic bone disorders should also be considered. Patients who have osteoporosis should be evaluated for specific diseases and conditions (secondary causes) that may cause or contribute to bone loss. The [place] [employer] Clinical Endocrinologists (AACE) and National Osteoporosis Foundation (NOF) recommend pharmacologic intervention for all postmenopausal women with a previous hip or vertebral fracture and a T-score in this range. The patient should follow a healthful lifestyle (good nutrition with adequate calcium and vitamin D, and appropriate weight-bearing exercise). Follow-Up: Consider a repeat BMD and Vertebral Fracture Assessment (VFA) exam in 2 years or sooner if medically necessary, to reassess this patient's status. Reported by: RD on 07/22/2025 1:14:00 PM. Reviewed, dictated and finalized at location A.
--- OUTSIDE RECORDS SUMMARY | 2025-07-15 14:39 | XMS_ITS | Patient Health Record ---
Author Organization [facility] Address [address] [facility] [address] [place] [address] Care Team Providers Care Process Safety Management Engineer Name Role Phone Fouzia BATEMAN, Bly Primary Care Provider Unavailab johnie OdomlucianaCricket Unavailable [phone] Reason For Referral No Information Medications Medication [...] Problem Status W/U Status Risk Notes Problem 380224750 Bilateral primar y osteoarthritis of knee (M17.0) Active confirmed Problem 837282206746218 Pain in right kn ee (M25.561) Active confirmed Problem 33259476 Pain in left kne e (M25.562) Active confirmed Problem 99271044 Unsteadiness on feet (R26.81) Active confirmed Problem 05501144 Pain in left hip (M25.552) Active confirmed Problem 52949038 *Osteoarthritis unspecified, unspecified site (M19.90) Active confirmed Problem 6671990 Trochanteric bursitis, 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) Active confirmed Plan Of Treatment No Information Insurance Providers Payer Name Payer Address Payer Phone Subscriber Number Group Number Insured Name Patient Relationship to Insured Coverage Start Date Coverage End Date MEDICARE WPS [address] [place] [address] [id number] Kell Bey Self - patient is the insured [facility] [address] [place] [address] [id number] Kell Bey Self - patient is the insured Medical (General) History Medical History History ICD Code hypertension cholesterol Surgical History Surgery Date(Month/Year) tonsillectomy and adenoidectomy
--- OUTSIDE RECORDS SUMMARY | 2025-07-15 14:40 | XMS_ITS | Clinical Summary ---
Author Organization [facility] [address] Address [address] [place] [address] Care Team Providers Care Optical Fabricator Name Role Phone Alexandr Peres MD Primary Care Provider [phone] Allergies Active Allergy Reactions Criticality Noted Date Comments Venom-Honey Bee Unknown 03/25/2025 Latex Other (See comments) Low 03/03/2025 Lidocaine Other (See comments) 06/08/2025 Unknown rxn Medications Jublia 10 % solution with applicator APPLY TO AFFECTED TOE NAILS AND FINGER NAILS EVERY EVENING 5 Active Eliquis 2.5 mg tablet Take 1 tablet (2.5 mg total) by mouth 2 (two) times a day 5 Active verapamil SR (CALAN SR) 180 mg CR tablet Take 1 tablet (180 mg total) by mouth daily 5 Active atorvastatin (LIPITOR) 40 mg tablet Take by mouth nightly 5 Active flecainide (TAMBOCOR) 100 mg tablet Take 1 tablet (100 mg total) by mouth 2 (two) times a day 5 Active olmesartan (BENICAR) 20 mg tablet Take 1 tablet (20 mg total) by mouth daily Active biotin 5 mg tablet Take 5 mg by mouth daily 5 Active acetaminophen 500 mg capsuleIndicati ons:Pain Take 2 capsules (1,000 mg total) by mouth every 6 (six) hours as needed for pain 5 Active methocarbamoL (ROBAXIN) 500 mg tablet Take 1 tablet (500 mg total) by mouth 3 (three) times a day as needed for muscle spasms Active senna (SENOKOT) 8.6 mg tabletIndicatio ns:constipation Take 2 tablets by mouth 2 (two) times a day 5 06/12/20 26 Active polyethylene glycol (MIRALAX) 17 gram/dose bulk powderIndicatio ns:constipation Take 17 g by mouth daily 5 Active HYDROcodone-hesham taminophen (NORCO) 5-325 mg per tabletIndicatio ns:Pain Take 1 tablet by mouth every 6 (six) hours as needed for pain for up to 7 days 28 tablet 5 07/15/20 25 Active oxyCODONE (ROXICODONE) 5 mg immediate release tabletIndicatio ns:Pain Take 0.5 tablets (2.5 mg total) by mouth every 4 (four) hours as needed for pain 07/08/20 Discontinu ed(Therapy completed) Active Problems Problem Noted Date Diagnosed Date Acute blood loss anemia 06/11/2025 Assessment & Plan (06/11/2025 11:41 AM COUPON AND BOND COLLECTION CLERK): - Hgb (06/10): 11.8g/dL - Hgb (06/11): 10.3g/dL Fall, initial encounter 06/09/2025 Closed fracture of left elbow 06/09/2025 Assessment & Plan (06/11/2025 11:38 AM COUPON AND BOND COLLECTION CLERK): - Orthopedic consult - CT L elbow (06/08): Comminuted and mildly displaced intra-articular fractures of trochlea and capitellum, which extend into the medial and lateral epicondyles respectively, comminuted and mildly displaced intra-articular fracture of olecranon process, possible nondisplaced fracture of the radial head. - non-operative management - remain in splint - NWB LUE - Follow up with Orthopedics Fracture of right scapula 06/09/2025 Assessment & Plan (06/11/2025 11:39 AM COUPON AND BOND COLLECTION CLERK): - CT chest/abdomen/pelvis (06/08): Cortical irregularity in the right scapula could represent scapular fracture, recommend correlation with point tenderness - Orthopedics consult - non-operative management - WBAT RUE - PT/OT - Follow up with Orthopedics Acute traumatic pain 06/09/2025 Assessment & Plan (06/10/2025 12:01 PM COUPON AND BOND COLLECTION CLERK): - Tylenol 1g q6h - Discontinued Flexeril - Robaxin 500mg TID PRN - Gabapentin 300mg HS- stopped related to dizziness - Oxycodone 2.5mg q4h PRN Discharge planning issues 06/09/2025 Assessment & Plan (06/11/2025 11:39 AM COUPON AND BOND COLLECTION CLERK): - 06/09: awaiting PT/OT evaluation, PO pain medication 06/10 POD #1, awaiting PT/OT recommendation for placement. - 06/11: Patient is medically stable for discharge, SW/CM updated. Discharge pending facility acceptance Treatment plan note [x] SSS (sick sinus syndrome) 06/08/2025 Assessment & Plan (06/09/2025 2:09 PM COUPON AND BOND COLLECTION CLERK): - Continue Flecainide 100mg BID - Continue Verapamil SR 180mg daily Nondisplaced intertrochanter ic fracture of left femur, initial encounter for closed fracture 06/08/2025 Assessment & Plan (06/11/2025 11:45 AM COUPON AND BOND COLLECTION CLERK): - Orthopedic consult - 06/09: DAYANA INTRAMEDULLARY NAILING FEMUR - ANTEGRADE - INTERTROCHANTERIC (Left) - WBAT LLE - PT/OT - 06/10 L leg dressing clean, dry. PT/OT following for placement recommendation. Pain well controlled.Mild dizziness and SBP 80-90, asymptomatic- 500 ml NS given with improvement of her BP post bolus. - Follow up with Orthopedics Essential hypertension 03/25/2025 Assessment & Plan (06/09/2025 2:08 PM COUPON AND BOND COLLECTION CLERK): - Hold Losartan 50mg daily Mixed hyperlipidemia 03/25/2025 Assessment & Plan (06/10/2025 11:59 AM COUPON AND BOND COLLECTION CLERK): - Atorvastatin 40mg HS -resumed Chronic anticoagulation 03/25/2025 Cardiac pacemaker in situ 03/25/2025 Overview (03/25/2025): Medtronic Dalia Dual Pacemaker. Dx; SSS, PAF. DOI 06/24/2020-elsewhere. [facility] remote. 03/25/25-requested remote transfer. PAF (paroxysmal atrial fibrillation) 03/25/2025 Cardiomyopathy 03/25/2025 Lipid screening 03/25/2025 Encounters Date Type Department Care Team Description 07/03/2025 3:56 PM COUPON AND BOND COLLECTION CLERK - 07/03/2025 11:59 PM COUPON AND BOND COLLECTION CLERK Hospital Encounter [facility] [address] [place] [id number] Acute pain of left knee Discharge Disposition: Discharge to home or self care 07/03/2025 2:20 PM COUPON AND BOND COLLECTION CLERK Office Visit [facility] [address] [place] [address] for [facility] 6th [place] [address] [place] [address] Berna Case MD Closed fracture of olecranon process of left ulna with routine healing, subsequent encounter (Primary Dx); Closed fracture of right scapula, unspecified part of scapula, initial encounter; Nondisplaced intertrochanteric fracture of left femur, initial encounter for closed fracture; Acute pain of left knee 07/03/2025 1:45 PM COUPON AND BOND COLLECTION CLERK - 07/03/2025 11:59 PM COUPON AND BOND COLLECTION CLERK Hospital Encounter [facility] [place] [facility] ([facility]) [address] [place] [id number] Closed fracture of olecranon process of left ulna with routine healing, subsequent encounter; Closed fracture of right scapula, unspecified part of scapula, initial encounter; Nondisplaced intertrochanteric fracture of left femur, initial encounter for closed fracture Discharge Disposition: Discharge to home or self care 07/01/2025 7:30 AM COUPON AND BOND COLLECTION CLERK Ancillary Procedure [facility] [address] [facility] [address] [place] [phone] SSS (sick sinus syndrome) (HCC); Atrial fibrillation, unspecified type (HCC); Pacemaker 06/19/2025 3:14 PM COUPON AND BOND COLLECTION CLERK - 06/19/2025 11:59 PM COUPON AND BOND COLLECTION CLERK Hospital Encounter [facility] [address] [place] [address] Berna Case MD Closed fracture of olecranon process of left ulna with routine healing, subsequent encounter Discharge Disposition: Discharge to home or self care 06/19/2025 3:10 PM COUPON AND BOND COLLECTION CLERK Office Visit [facility] [address] [place] [address] 6th [place] [address] [place] [address] Berna Case MD Closed fracture of olecranon process of left ulna with routine healing, subsequent encounter (Primary Dx) 06/18/2025 Telephone [facility] [address] [place] [address] [place] [address] [place] [address] Mary Anne Pereira RMA 06/09/2025 8:37 AM COUPON AND BOND COLLECTION CLERK Anesthesia Event [facility] Operating Room [address] [place] [address] Bo Anna MD 06/09/2025 8:36 AM COUPON AND BOND COLLECTION CLERK - 06/09/2025 10:44 AM COUPON AND BOND COLLECTION CLERK Surgery [facility] Operating [facility] [address] [place] [address] Berna Case MD INTRAMEDULLARY NAILING FEMUR - ANTEGRADE - INTERTROCHANTERIC 06/09/2025 Orders Only [facility] [address] [place] [address] 6th [place] [address] [place] [address] Berna Case MD Nondisplaced intertrochanteric fracture of left femur, initial encounter for closed fracture (Primary Dx) 06/08/2025 9:20 PM COUPON AND BOND COLLECTION CLERK - 06/12/2025 3:54 PM COUPON AND BOND COLLECTION CLERK Hospital Encounter [address] [address] Sergo Roque MD McCarron, Weston Michael, MD Thampy, Chelsea Ann, MD Fall, initial encounter (Primary Dx); Nondisplaced intertrochanteric fracture of left femur, initial encounter for closed fracture; Closed bicondylar fracture of distal end of left humerus, initial encounter; Chronic anticoagulation; SSS (sick sinus syndrome) (HCC); Cardiac pacemaker in situ Discharge Disposition: Discharge to an IP Rehab facility from Last 3 Months Surgical History Surgery [...] Types Packs/Day Years Used Date Smoking Tobacco: Never Tobacco Cessation:Counseling Given: Not Answered Alcohol Use Standard Drinks/Week Comments Yes 0 (1 standard drink = 0.6 oz pur e alcohol) AUDIT-C Answer Date Recorded Q1: How often do you have a drink containing alc ohol? Monthly or less 06/09/2025 Q2: How many drinks containi ng alcohol do you have on a typical day when you are drinking? 1 or 2 06/09/2025 Q3: How often do you have si x or more drinks on one occasion? Never 06/09/2025 Personal Safety Answer Date Recorded Have you ever been in or are you currently in a harmful physical or emotional relationship or is someone making you feel afraid or unsafe? Denies 06/09/2025 Comments Unknown Sex and Gender Information Value Date Recorded Sex Assigned at Not on file Legal Sex Female 9:40 AM CDT Gender Identity Not on file Sexual Orientation Not on file Last Filed Vital Signs Vital Sign Reading Time Taken Comments Blood Pressure 109/70 06/12/2025 12:28 PM COUPON AND BOND COLLECTION CLERK Pulse 60 06/12/2025 12:28 PM COUPON AND BOND COLLECTION CLERK Temperature 36.4 C (97.5 F) 06/12/2025 12:28 PM COUPON AND BOND COLLECTION CLERK Respiratory Rate 18 06/12/2025 4:06 AM COUPON AND BOND COLLECTION CLERK Oxygen Saturation 90% 06/12/2025 12:28 PM COUPON AND BOND COLLECTION CLERK Inhaled Oxygen Concentration - - Weight 57.2 kg (126 lb) 06/09/2025 8:33 AM COUPON AND BOND COLLECTION CLERK Height 160 cm (5' 3) 06/09/2025 4:25 AM COUPON AND BOND COLLECTION CLERK Body Mass Index 22.32 06/09/2025 4:25 AM COUPON AND BOND COLLECTION CLERK Plan of Treatment Health Maintenance Due Date Last Done Comments Depression Screening 1935 Osteoporosis Screening-Bone Density Scan 1935 DTaP/Tdap/Td Vaccine (1 - Tdap) 1948 Hepatitis B Screening 10/05/1955 Pneumococcal vaccine 65+ (1 of 1 - PCV) 10/05/1987 Zoster Vaccine (1 of 2) 10/05/1987 Well Visit 65+ 2002 Fall Risk Assessment 06/12/2026 06/12/2025, 03/25/20 Influenza Vaccine Completed 04/17/2025 Medical Devices Implanted Type Area Plant Equipment Engineer Device Identifier Shelf Expiration Date Model / Serial / Lot [employer]/Ort ho Intertan 11.5mm 20cm Trochanteric 130d Nail Intramedullary [id number] - [id number] Implanted:Qty: 1 on 06/09/2025 by Berna Case MD at [facility] Left: Femur [employer]/O rtho [id number] 04/28/2034 [id number] / / [id number] [employer]/Ort ho Intertan Lag Compression Trochanteric [id number] Kit Screw [id number] - [id number] Implanted:Qty: 1 on 06/09/2025 by Berna Case MD at [facility] Left: Femur [employer]/O rtho 01/13/2035 [id number] / / [id number] [employer]/Ort ho 5mm 25mm Low Profile Internal Hex Femur Screw Bone Trigen [id number] - [id number] Implanted:Qty: 1 on 06/09/2025 by Berna Case MD at [facility] Left: Femur [employer]/Rich[employer]/O rtho [id number] / / Procedures Procedure Name Priority Date/Time Associated Diagnosis Comments XR KNEE LEFT 1 OR 2 VIEWS Routine 07/03/2025 4:10 PM COUPON AND BOND COLLECTION CLERK Acute pain of left knee ORTHO CASTING/SPLINTING Routine 07/03/2025 3:22 PM COUPON AND BOND COLLECTION CLERK Closed fracture of olecranon process of left ulna with routine healing, subsequent encounter XR HIP LEFT W PELVIS 2 OR 3 VIEWS Schedule Routine, Read Routine (OP Routine) 07/03/2025 3:02 PM COUPON AND BOND COLLECTION CLERK Closed fracture of olecranon process of left ulna with routine healing, subsequent encounter Closed fracture of right scapula, unspecified part of scapula, initial encounter Nondisplaced intertrochanteric fracture of left femur, initial encounter for closed fracture XR SCAPULA RIGHT COMPLETE Schedule Routine, Read Routine (OP Routine) 07/03/2025 3:02 PM COUPON AND BOND COLLECTION CLERK Closed fracture of olecranon process of left ulna with routine healing, subsequent encounter Closed fracture of right scapula, unspecified part of scapula, initial encounter Nondisplaced intertrochanteric fracture of left femur, initial encounter for closed fracture XR ELBOW LEFT 3 OR MORE VIEWS Schedule Routine, Read Routine (OP Routine) 07/03/2025 3:02 PM COUPON AND BOND COLLECTION CLERK Closed fracture of olecranon process of left ulna with routine healing, subsequent encounter Closed fracture of right scapula, unspecified part of scapula, initial encounter Nondisplaced intertrochanteric fracture of left femur, initial encounter for closed fracture DEVICE CHECK - REMOTE Routine 07/02/2025 6:56 AM COUPON AND BOND COLLECTION CLERK SSS (sick sinus syndrome) (HCC) Atrial fibrillation, unspecified type (HCC) Pacemaker MS CAST SUP LONG ARM ADULT FBRG Routine 06/19/2025 4:36 PM COUPON AND BOND COLLECTION CLERK Closed fracture of olecranon process of left ulna with routine healing, subsequent encounter MS APPLICATION CAST SHOULDER HAND LONG ARM Routine 06/19/2025 4:36 PM COUPON AND BOND COLLECTION CLERK Closed fracture of olecranon process of left ulna with routine healing, subsequent encounter XR ELBOW LEFT 3 OR MORE VIEWS Schedule Routine, Read Routine (OP Routine) 06/19/2025 3:32 PM COUPON AND BOND COLLECTION CLERK Closed fracture of olecranon process of left ulna with routine healing, subsequent encounter EGFR Timed 06/11/2025 8:54 PM COUPON AND BOND COLLECTION CLERK PHOSPHORUS Timed 06/11/2025 8:54 PM COUPON AND BOND COLLECTION CLERK BASIC METABOLIC PANEL Timed 06/11/2025 8:54 PM COUPON AND BOND COLLECTION CLERK CBC WITHOUT DIFFERENTIAL Routine 06/11/2025 8:54 PM COUPON AND BOND COLLECTION CLERK EGFR Timed 06/10/2025 7:39 PM COUPON AND BOND COLLECTION CLERK PHOSPHORUS Timed 06/10/2025 7:39 PM COUPON AND BOND COLLECTION CLERK MAGNESIUM Timed 06/10/2025 7:39 PM COUPON AND BOND COLLECTION CLERK BASIC METABOLIC PANEL Timed 06/10/2025 7:39 PM COUPON AND BOND COLLECTION CLERK CBC WITHOUT DIFFERENTIAL Routine 06/10/2025 7:39 PM COUPON AND BOND COLLECTION CLERK DIFFERENTIAL AUTO Routine 06/10/2025 7:30 AM COUPON AND BOND COLLECTION CLERK CBC WITH AUTO DIFFERENTIAL Routine 06/10/2025 7:30 AM COUPON AND BOND COLLECTION CLERK EGFR Timed 06/10/2025 6:24 AM COUPON AND BOND COLLECTION CLERK PHOSPHORUS Timed 06/10/2025 6:24 AM COUPON AND BOND COLLECTION CLERK MAGNESIUM Timed 06/10/2025 6:24 AM COUPON AND BOND COLLECTION CLERK BASIC METABOLIC PANEL Timed 06/10/2025 6:24 AM COUPON AND BOND COLLECTION CLERK MS AN PROCEDURE PLACEHOLDER Routine 06/09/2025 12:07 PM COUPON AND BOND COLLECTION CLERK FL FLUOROSCOPY < 1 HOUR IP Routine 06/09/2025 10:00 AM COUPON AND BOND COLLECTION CLERK MS AN PROCEDURE PLACEHOLDER Routine 06/09/2025 8:57 AM COUPON AND BOND COLLECTION CLERK MS AN ELECTIVE ENDOTRACHEAL AIRWAY Routine 06/09/2025 8:57 AM COUPON AND BOND COLLECTION CLERK INTRAMEDULLARY NAILING FEMUR - ANTEGRADE - INTERTROCHANTERIC 06/09/2025 8:42 AM COUPON AND BOND COLLECTION CLERK Nondisplaced intertrochanteric fracture of left femur, initial encounter for closed fracture Case Notes Jason [phone] MS CRITICAL CARE ILL/INJURED PATIENT INIT 30-74 MIN Routine 06/09/2025 7:37 AM COUPON AND BOND COLLECTION CLERK XR SCAPULA RIGHT COMPLETE ED 06/09/2025 3:12 AM COUPON AND BOND COLLECTION CLERK XR HIP LEFT 1 VIEW ED Urgent/IP Urgent 06/08/2025 11:45 PM COUPON AND BOND COLLECTION CLERK XR ELBOW LEFT 1 VIEW IP Routine 06/08/2025 11:45 PM COUPON AND BOND COLLECTION CLERK XR RADIUS ULNA LEFT 2 VIEWS ED Urgent/IP Urgent 06/08/2025 11:45 PM COUPON AND BOND COLLECTION CLERK XR HUMERUS LEFT 2 OR MORE VIEWS ED Urgent/IP Urgent 06/08/2025 11:45 PM COUPON AND BOND COLLECTION CLERK XR FEMUR LEFT 2 OR MORE VIEWS ED Urgent/IP Urgent 06/08/2025 11:45 PM COUPON AND BOND COLLECTION CLERK B CHECK SAMPLE STAT 06/08/2025 11:21 PM COUPON AND BOND COLLECTION CLERK CT ELBOW LEFT WO CONTRAST ED 06/08/2025 11:18 PM COUPON AND BOND COLLECTION CLERK CT CHEST ABDOMEN PELVIS W CONTRAST ED 06/08/2025 11:18 PM COUPON AND BOND COLLECTION CLERK CT HEAD AND CERVICAL SPINE WO CONTRAST ED 06/08/2025 11:18 PM COUPON AND BOND COLLECTION CLERK POCT CREATININE - DEVICE Routine 06/08/2025 10:25 PM COUPON AND BOND COLLECTION CLERK EGFR STAT 06/08/2025 10:16 PM COUPON AND BOND COLLECTION CLERK URINALYSIS, MICROSCOPIC ONLY STAT 06/08/2025 10:16 PM COUPON AND BOND COLLECTION CLERK DIFFERENTIAL AUTO STAT 06/08/2025 10:16 PM COUPON AND BOND COLLECTION CLERK TYPE AND SCREEN Timed 06/08/2025 10:16 PM COUPON AND BOND COLLECTION CLERK PROTIME-INR STAT 06/08/2025 10:16 PM COUPON AND BOND COLLECTION CLERK APTT STAT 06/08/2025 10:16 PM COUPON AND BOND COLLECTION CLERK COMPREHENSIVE METABOLIC PANEL STAT 06/08/2025 10:16 PM COUPON AND BOND COLLECTION CLERK CBC WITH AUTO DIFFERENTIAL STAT 06/08/2025 10:16 PM COUPON AND BOND COLLECTION CLERK URINE CULTURE STAT 06/08/2025 10:16 PM COUPON AND BOND COLLECTION CLERK URINALYSIS AND REFLEX TO MICROSCOPIC AND CULTURE STAT 06/08/2025 10:16 PM COUPON AND BOND COLLECTION CLERK XR TRANSFER OF OUTSIDE FILMS Routine 06/08/2025 9:54 PM COUPON AND BOND COLLECTION CLERK XR TRANSFER OF OUTSIDE FILMS Routine 06/08/2025 9:52 PM COUPON AND BOND COLLECTION CLERK XR TRANSFER OF OUTSIDE FILMS Routine 06/08/2025 9:49 PM COUPON AND BOND COLLECTION CLERK XR TRANSFER OF OUTSIDE FILMS Routine 06/08/2025 9:48 PM COUPON AND BOND COLLECTION CLERK XR TRANSFER OF OUTSIDE FILMS Routine 06/08/2025 9:45 PM COUPON AND BOND COLLECTION CLERK XR TRANSFER OF OUTSIDE FILMS Routine 06/08/2025 9:42 PM COUPON AND BOND COLLECTION CLERK from Last 3 Months Results * XR Knee Left 1 or 2 Views (07/03/2025 4:10 PM COUPON AND BOND COLLECTION CLERK) Anatomical Region Laterality Modality Lower Extremities, Knee Left Computed Radiography 07/03/2025 4:32 PM COUPON AND BOND COLLECTION CLERK Impressions 07/03/2025 4:32 PM COUPON AND BOND COLLECTION CLERK 1. Mildly depressed osteochondral lesion of the medial femoral condyle. 2. Mild tricompartmental osteoarthritis. Electronically signed by: Marlyn Milner 07/03/2025 4:32 PM COUPON AND BOND COLLECTION CLERK XR KNEE LEFT 1 OR 2 VIEWS HISTORY: Left knee injury FINDINGS: 2 views of the left knee are obtained and compared with 06/08/2025. There is redemonstrated osteochondral lesion of the medial femoral condyle. There is no displaced fracture. Mild tricompartmental osteoarthritis. There is diffuse osteopenia. No joint effusion. Procedure Note Kaleb Syed MD - 07/03/2025 XR KNEE LEFT 1 OR 2 VIEWS HISTORY: Left knee injury FINDINGS: 2 views of the left knee are obtained and compared with 06/08/2025. There is redemonstrated osteochondral lesion of the medial femoral condyle. There is no displaced fracture. Mild tricompartmental osteoarthritis. There is diffuse osteopenia. No joint effusion. IMPRESSION: 1. Mildly depressed osteochondral lesion of the medial femoral condyle. 2. Mild tricompartmental osteoarthritis. Electronically signed by: Kaleb Syed M.D. Berna Case MD IMG XR PROCEDURES Final Result * Ortho Casting/Splinting Documentation (07/03/2025 3:22 PM COUPON AND BOND COLLECTION CLERK) Narrative Saúl Duran - 07/03/2025 3:22 PM COUPON AND BOND COLLECTION CLERK Saúl Duran 07/03/2025 5:08 PM Ortho Casting/Splinting Documentation Date/Time: 07/03/2025 3:22 PM Performed by: Saúl Duran Authorized by: Berna Case MD Sensation: Normal Skin Condition: Clean, dry, and intact [place]/Sutures Removed: No Pin Pulled: No Cast Removed: Yes (left arm) Supplies: Cast removal only Capillary Refill: Normal Patient tolerance of procedure: Tolerated well, no immediate complications us Berna Case MD IN CLINIC/BEDSIDE ORDERABLES Final Result * XR Hip Left 2 or 3 Views W Pelvis (07/03/2025 3:02 PM COUPON AND BOND COLLECTION CLERK) Anatomical Region Laterality Modality Lower Extremities, Hip, Pelvis Left C omputed Radiography 07/03/2025 3:23 PM COUPON AND BOND COLLECTION CLERK Impressions 07/03/2025 3:23 PM COUPON AND BOND COLLECTION CLERK 1. Healing internally fixated intertrochanteric proximal left femoral fracture. 2. Comminuted, displaced fractures of the left lateral humeral condyle and olecranon. 3. Comminuted, minimally displaced left radial head fracture. 4. No radiographic evidence of scapular fracture. If the clinical concern is high, this can be further evaluated with dedicated scapular CT. Electronically signed by: Gregorio Richmond MD Narrative 07/03/2025 3:23 PM COUPON AND BOND COLLECTION CLERK EXAMINATION: XR ELBOW LEFT 3 OR MORE VIEWS, XR SCAPULA RIGHT COMPLETE, XR HIP LEFT 2 OR 3 VIEWS W PELVIS HISTORY: Left elbow fracture, proximal left femur fracture, right scapular fracture FINDINGS: 4 views of the left elbow are compared to examination dated 06/19/2025. Redemonstrated are comminuted fractures of the left lateral humeral condyle and olecranon. These fractures are displaced, with the olecranon fracture demonstrated 14 mm of distraction. Moderate-sized left elbow joint effusion. Comminuted, minimally displaced left radial head fracture. Moderate soft tissue swelling. 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 Moderate soft tissue swelling. 2 views of the left hip are compared to examination dated 06/08/2025. There has been interval placement of a short intramedullary rebecca with 2 femoral neck screws and a distal interlocking screw for management of intertrochanteric proximal left femoral fracture. Mild to moderate bilateral hip osteoarthritis. No new fracture. Chondrocalcinosis of the symphysis pubis. Vascular calcifications. 2 views of the right scapula are compared to examination dated 06/08/2025. No definite scapular fracture is seen. 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 Procedure Note Gregorio Richmond MD - 07/03/2025 EXAMINATION: XR ELBOW LEFT 3 OR MORE VIEWS, XR SCAPULA RIGHT COMPLETE, XR HIP LEFT 2 OR 3 VIEWS W PELVIS HISTORY: Left elbow fracture, proximal left femur fracture, right scapular fracture FINDINGS: 4 views of the left elbow are compared to examination dated 06/19/2025. Redemonstrated are comminuted fractures of the left lateral humeral condyle and olecranon. These fractures are displaced, with the olecranon fracture demonstrated 14 mm of distraction. Moderate-sized left elbow joint effusion. Comminuted, minimally displaced left radial head fracture. Moderate soft tissue swelling. 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 Moderate soft tissue swelling. 2 views of the left hip are compared to examination dated 06/08/2025. There has been interval placement of a short intramedullary rebecca with 2 femoral neck screws and a distal interlocking screw for management of intertrochanteric proximal left femoral fracture. Mild to moderate bilateral hip osteoarthritis. No new fracture. Chondrocalcinosis of the symphysis pubis. Vascular calcifications. 2 views of the right scapula are compared to examination dated 06/08/2025. No definite scapular fracture is seen. 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 IMPRESSION: 1. Healing internally fixated intertrochanteric proximal left femoral fracture. 2. Comminuted, displaced fractures of the left lateral humeral condyle and olecranon. 3. Comminuted, minimally displaced left radial head fracture. 4. No radiographic evidence of scapular fracture. If the clinical concern is high, this can be further evaluated with dedicated scapular CT. Electronically signed by: Gregorio Richmond MD Berna Case MD IMG XR PROCEDURES Final Result * XR Elbow Left 3 or More Views (07/03/2025 3:02 PM COUPON AND BOND COLLECTION CLERK) Anatomical Region Laterality Modality Upper Extremities, Elbow Left Compute d Radiography 07/03/2025 3:23 PM COUPON AND BOND COLLECTION CLERK Impressions 07/03/2025 3:23 PM COUPON AND BOND COLLECTION CLERK 1. Healing internally fixated intertrochanteric proximal left femoral fracture. 2. Comminuted, displaced fractures of the left lateral humeral condyle and olecranon. 3. Comminuted, minimally displaced left radial head fracture. 4. No radiographic evidence of scapular fracture. If the clinical concern is high, this can be further evaluated with dedicated scapular CT. Electronically signed by: Gregorio Richmond MD Narrative 07/03/2025 3:23 PM COUPON AND BOND COLLECTION CLERK EXAMINATION: XR ELBOW LEFT 3 OR MORE VIEWS, XR SCAPULA RIGHT COMPLETE, XR HIP LEFT 2 OR 3 VIEWS W PELVIS HISTORY: Left elbow fracture, proximal left femur fracture, right scapular fracture FINDINGS: 4 views of the left elbow are compared to examination dated 06/19/2025. Redemonstrated are comminuted fractures of the left lateral humeral condyle and olecranon. These fractures are displaced, with the olecranon fracture demonstrated 14 mm of distraction. Moderate-sized left elbow joint effusion. Comminuted, minimally displaced left radial head fracture. Moderate soft tissue swelling. 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 Moderate soft tissue swelling. 2 views of the left hip are compared to examination dated 06/08/2025. There has been interval placement of a short intramedullary rebecca with 2 femoral neck screws and a distal interlocking screw for management of intertrochanteric proximal left femoral fracture. Mild to moderate bilateral hip osteoarthritis. No new fracture. Chondrocalcinosis of the symphysis pubis. Vascular calcifications. 2 views of the right scapula are compared to examination dated 06/08/2025. No definite scapular fracture is seen. 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 Procedure Note Gregorio Richmond MD - 07/03/2025 EXAMINATION: XR ELBOW LEFT 3 OR MORE VIEWS, XR SCAPULA RIGHT COMPLETE, XR HIP LEFT 2 OR 3 VIEWS W PELVIS HISTORY: Left elbow fracture, proximal left femur fracture, right scapular fracture FINDINGS: 4 views of the left elbow are compared to examination dated 06/19/2025. Redemonstrated are comminuted fractures of the left lateral humeral condyle and olecranon. These fractures are displaced, with the olecranon fracture demonstrated 14 mm of distraction. Moderate-sized left elbow joint effusion. Comminuted, minimally displaced left radial head fracture. Moderate soft tissue swelling. 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 Moderate soft tissue swelling. 2 views of the left hip are compared to examination dated 06/08/2025. There has been interval placement of a short intramedullary rebecca with 2 femoral neck screws and a distal interlocking screw for management of intertrochanteric proximal left femoral fracture. Mild to moderate bilateral hip osteoarthritis. No new fracture. Chondrocalcinosis of the symphysis pubis. Vascular calcifications. 2 views of the right scapula are compared to examination dated 06/08/2025. No definite scapular fracture is seen. 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 IMPRESSION: 1. Healing internally fixated intertrochanteric proximal left femoral fracture. 2. Comminuted, displaced fractures of the left lateral humeral condyle and olecranon. 3. Comminuted, minimally displaced left radial head fracture. 4. No radiographic evidence of scapular fracture. If the clinical concern is high, this can be further evaluated with dedicated scapular CT. Electronically signed by: Gregorio Richmond MD Berna Case MD IMG XR PROCEDURES Final Result * XR Scapula Right Complete (07/03/2025 3:02 PM COUP[employer] AND BOND COLLECTION CLERK) Anatomical Region Laterality Modality Scapula, Body Right Computed Radiogr aphy 07/03/2025 3:23 PM [employer] AND BOND COLLECTION CLERK Impressions 07/03/2025 3:23 PM COUPON AND BOND COLLECTION CLERK 1. Healing internally fixated intertrochanteric proximal left femoral fracture. 2. Comminuted, displaced fractures of the left lateral humeral condyle and olecranon. 3. Comminuted, minimally displaced left radial head fracture. 4. No radiographic evidence of scapular fracture. If the clinical concern is high, this can be further evaluated with dedicated scapular CT. Electronically signed by: Gregorio Richmond MD Narrative 07/03/2025 3:23 PM COUP[employer] AND BOND COLLECTION CLERK EXAMINATION: XR ELBOW LEFT 3 OR MORE VIEWS, XR SCAPULA RIGHT COMPLETE, XR HIP LEFT 2 OR 3 VIEWS W PELVIS HISTORY: Left elbow fracture, proximal left femur fracture, right scapular fracture FINDINGS: 4 views of the left elbow are compared to examination dated 06/19/2025. Redemonstrated are comminuted fractures of the left lateral humeral condyle and olecranon. These fractures are displaced, with the olecranon fracture demonstrated 14 mm of distraction. Moderate-sized left elbow joint effusion. Comminuted, minimally displaced left radial head fracture. Moderate soft tissue swelling. 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 Moderate soft tissue swelling. 2 views of the left hip are compared to examination dated 06/08/2025. There has been interval placement of a short intramedullary rebecca with 2 femoral neck screws and a distal interlocking screw for management of intertrochanteric proximal left femoral fracture. Mild to moderate bilateral hip osteoarthritis. No new fracture. Chondrocalcinosis of the symphysis pubis. Vascular calcifications. 2 views of the right scapula are compared to examination dated 06/08/2025. No definite scapular fracture is seen. 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 Procedure Note Gregorio Richmond MD - 07/03/2025 EXAMINATION: XR ELBOW LEFT 3 OR MORE VIEWS, XR SCAPULA RIGHT COMPLETE, XR HIP LEFT 2 OR 3 VIEWS W PELVIS HISTORY: Left elbow fracture, proximal left femur fracture, right scapular fracture FINDINGS: 4 views of the left elbow are compared to examination dated 06/19/2025. Redemonstrated are comminuted fractures of the left lateral humeral condyle and olecranon. These fractures are displaced, with the olecranon fracture demonstrated 14 mm of distraction. Moderate-sized left elbow joint effusion. Comminuted, minimally displaced left radial head fracture. Moderate soft tissue swelling. 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 Moderate soft tissue swelling. 2 views of the left hip are compared to examination dated 06/08/2025. There has been interval placement of a short intramedullary rebecca with 2 femoral neck screws and a distal interlocking screw for management of intertrochanteric proximal left femoral fracture. Mild to moderate bilateral hip osteoarthritis. No new fracture. Chondrocalcinosis of the symphysis pubis. Vascular calcifications. 2 views of the right scapula are compared to examination dated 06/08/2025. No definite scapular fracture is seen. 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 IMPRESSION: 1. Healing internally fixated intertrochanteric proximal left femoral fracture. 2. Comminuted, displaced fractures of the left lateral humeral condyle and olecranon. 3. Comminuted, minimally displaced left radial head fracture. 4. No radiographic evidence of scapular fracture. If the clinical concern is high, this can be further evaluated with dedicated scapular CT. Electronically signed by: Gregorio Richmond MD Berna Case MD IMG XR PROCEDURES Final Result * DEVICE CHECK - REMOTE (07/02/2025 6:56 AM COUPON AND BOND COLLECTION CLERK) Anatomical Region Laterality Modality Other Narrative 07/02/2025 12:52 PM COUPON AND BOND COLLECTION CLERK [employer] [place] Dual Pacemaker. Dx; SSS, PAF. DOI 06/24/2020-elsewhere. [facility] remote. 03/25/25-requested remote transfer. Routine AAIR <> DDDR Pacemaker Remote. Transmission attached. Battery status: 2.99 V , 8.3 years remaining battery life to SHIRA. Stable lead impedances, pacing and sensing thresholds. Presenting rhythm: AP/ VS AP- 99.9%, SUBSTANCE ABUSE RN- 0.2% No AT/AF episodes noted. No Ventricular high rate episodes detected. Medications: Eliquis 2.5 mg, flecainide 100 mg, olmesartan 20 mg See scanned report. Office pacemaker follow up: 9 months [facility] remote f/u 10/08/25. Sony Bonilla RN Richard Hdez MD CV [facility] Final Result * MS APPLICATION CAST SHOULDER HAND LONG ARM, MS CAST SUP LONG ARM ADULT FBRG (06/19/2025 4:36 PM COUPON AND BOND COLLECTION CLERK) Narrative Meenakshi Pedroza CMA - 06/19/2025 4:36 PM COUPON AND BOND COLLECTION CLERK Meenakshi Pedroza CMA 06/19/2025 4:37 PM Ortho Casting/Splinting Documentation Date/Time: 06/19/2025 4:36 PM Performed by: Meenakshi Pedroza CMA Authorized by: Berna Case MD Cast Applied: Yes (Assisted by Saúl Holly) Location: Arm Arm: L upper arm Cast type: Long arm cast Supplies: Fiberglass Additional Supplies: Cotton padding and cotton stocking/sleeve Number of fiberglass rolls used: 3 Capillary Refill: Normal Patient tolerance of procedure: Tolerated well, no immediate complications Pt received cast care instructions us Berna Case MD IN CLINIC/BEDSIDE ORDERABLES Final Result * XR Elbow Left 3 or More Views (06/19/2025 3:32 PM COUPON AND BOND COLLECTION CLERK) Anatomical Region Laterality Modality Upper Extremities, Elbow Left Compute d Radiography 06/19/2025 4:19 PM COUPON AND BOND COLLECTION CLERK Impressions 06/19/2025 4:19 PM COUPON AND BOND COLLECTION CLERK 1. Unchanged comminuted displaced fractures of the distal humerus and olecranon process Electronically signed by: Lisa Ludwig MD Narrative 06/19/2025 4:19 PM COUPON AND BOND COLLECTION CLERK EXAMINATION: XR ELBOW LEFT 3 OR MORE VIEWS HISTORY: Elbow pain. FINDINGS: Comparison to 06/08/2025. Unchanged comminuted displaced and retracted olecranon process fracture with up to 1.7 cm gap, unchanged. Unchanged mildly displaced fracture of the capitellum and trochlea involving the medial and lateral condyles. No definite fracture of the radial head. Multiple fracture fragments within the elbow joint. Moderate soft tissue swelling about the elbow. Probable residual joint effusion. Procedure Note Lisa Ludwig MD - 06/19/2025 EXAMINATION: XR ELBOW LEFT 3 OR MORE VIEWS HISTORY: Elbow pain. FINDINGS: Comparison to 06/08/2025. Unchanged comminuted displaced and retracted olecranon process fracture with up to 1.7 cm gap, unchanged. Unchanged mildly displaced fracture of the capitellum and trochlea involving the medial and lateral condyles. No definite fracture of the radial head. Multiple fracture fragments within the elbow joint. Moderate soft tissue swelling about the elbow. Probable residual joint effusion. IMPRESSION: 1. Unchanged comminuted displaced fractures of the distal humerus and olecranon process Electronically signed by: Lisa Ludwig MD us Berna Case MD IMG XR PROCEDURES Final Result * (ABNORMAL) eGFR (06/11/2025 8:54 PM COUPON AND BOND COLLECTION CLERK) [facility] eGFR 58(L) >=60 mL/min/1. 73 m2 Comment: Interpretive Data Reference Interval Normal >/= 90 mL/min/1.73m2 Mildly decreased* 60 - 89 mL/min/1.73m2 Mildly to moderately decreased 45 - 59 mL/min/1.73m2 Moderately to severely decreased 30 - 44 mL/min/1.73m2 Severely decreased 15 - 29 mL/min/1.73m2 Kidney Failure < 15 mL/min/1.73m2 *Relative to young adult level Estimated glomerular filtration rate is determined by the 2020 CKD-EPI equation recommended by the National Kidney Foundation (A Unifying Approach to GFR Estimation: Recommendations of the NKF-ASK Task Force on Reassessing the Inclusion of Race in Diagnosing Kidney Disease, JASN 2020). The CKD-EPI equation should not be used for patients with unstable renal function and has not been validated in children and those over 70. Current interpretive data was last reviewed 2021. Blood 06/11/2025 8:54 PM COUPON AND BOND COLLECTION CLERK 06/11/2025 9:38 PM COUPON AND BOND COLLECTION CLERK us Yuliana Whittaker MD LAB BLOOD ORDERABLES Final Result [facility] Department [place] [address] * (ABNORMAL) CBC without differential (06/11/2025 8:54 PM COUPON AND BOND COLLECTION CLERK) [facility] WBC 9.62 3.80 - 9.90 K/cumm Hgb 10.0(L) 11.9 - 15.5 g/dL [facility] Hct 30.2(L) 35.6 - 45.5 % [facility] Plt 151 150 - 400 K/cumm [facility] MPV 10.9 9.1 - 12.3 fL [facility] RBC 2.99(L) 3.90 - 5.20 M/cumm [facility] MCV 101.0(H) 81.3 - 96.4 fL [facility] MCH 33.4(H) 27.1 - 33.3 pg [facility] MCHC 33.1 32.3 - 35.7 g/dL [facility] RDW CV 13.4 11.1 - 14.9 % [facility] RDW SD 49.6(H) 35.7 - 48.1 fL [facility] NRBC abs 0.00 0.00 - 0.01 K/cumm [facility] Blood 06/11/2025 8:54 PM COUPON AND BOND COLLECTION CLERK 06/11/2025 9:38 PM COUPON AND BOND COLLECTION CLERK Yuliana Whittaker MD LAB BLOOD ORDERABLES Final Result [facility] Department [place] [address] * Phosphorus (06/11/2025 8:54 PM COUPON AND BOND COLLECTION CLERK) [facility] Phosphorus, pl 2.4 2.3 - 4.5 mg/dL Blood 06/11/2025 8:54 PM COUPON AND BOND COLLECTION CLERK 06/11/2025 9:38 PM COUPON AND BOND COLLECTION CLERK Yuliana Whittaker MD LAB BLOOD ORDERABLES Final Result Performing Organization Address City/[facility]/ZIP Co de Phone Number [facility] Department [place] [address] * (ABNORMAL) Basic metabolic panel (06/11/2025 8:54 PM COUPON AND BOND COLLECTION CLERK) Pathologist [facility] Sodium 131(L) 135 - 145 mmol/L Potassium, pl 4.3 3.3 - 4.9 mmol/L [facility] Chloride 97 97 - 110 mmol/L [facility] CO2 25 22 - 32 mmol/L [facility] Anion gap 9 2 - 15 mmol/L [facility] BUN 20 6 - 25 mg/dL [facility] Creatinine 0.95 0.60 - 1.10 mg/dL [facility] Glucose 149 70 - 199 mg/dL [facility] Comment: Interpretive Data Fasting glucose >/= 126 mg/dl is diagnostic for diabetes. Fasting is defined as no caloric intake for at least 8 hours. Fasting glucose between 100 mg/dl to 125 mg/dl is diagnostic of prediabetes. In a patient with classic symptoms of hyperglycemia or hyperglycemic crisis, a random glucose >/= 200 mg/dl is diagnostic for diabetes. In the absence of unequivocal hyperglycemia, results should be confirmed by repeat testing. The classification and Diagnosis of Diabetes Diabetes Care 2021; 46: S19-S40. Current interpretive data was last revised 2022. Calcium 8.8 8.5 - 10.3 mg/dL [facility] Blood 06/11/2025 8:54 PM COUPON AND BOND COLLECTION CLERK 06/11/2025 9:38 PM COUPON AND BOND COLLECTION CLERK us Yuliana Whittaker MD LAB BLOOD ORDERABLES Final Result [facility] Department [place] [address] * (ABNORMAL) eGFR (06/10/2025 7:39 PM COUPON AND BOND COLLECTION CLERK) eGFR 45(L) >=60 mL/min/1. 73 m2 Comment: Interpretive Data Reference Interval Normal >/= 90 mL/min/1.73m2 Mildly decreased* 60 - 89 mL/min/1.73m2 Mildly to moderately decreased 45 - 59 mL/min/1.73m2 Moderately to severely decreased 30 - 44 mL/min/1.73m2 Severely decreased 15 - 29 mL/min/1.73m2 Kidney Failure < 15 mL/min/1.73m2 *Relative to young adult level Estimated glomerular filtration rate is determined by the 2020 CKD-EPI equation recommended by the National Kidney Foundation (A Unifying Approach to GFR Estimation: Recommendations of the NKF-ASK Task Force on Reassessing the Inclusion of Race in Diagnosing Kidney Disease, JASN 2020). The CKD-EPI equation should not be used for patients with unstable renal function and has not been validated in children and those over 70. Current interpretive data was last reviewed 2021. Blood 06/10/2025 7:39 PM COUPON AND BOND COLLECTION CLERK 06/10/2025 8:23 PM COUPON AND BOND COLLECTION CLERK Yuliana Whittaker MD LAB BLOOD ORDERABLES Final Result [facility] [place] [address] * (ABNORMAL) CBC without differential (06/10/2025 7:39 PM COUPON AND BOND COLLECTION CLERK) Pathologist [facility] WBC 9.09 3.80 - 9.90 K/cumm Hgb 10.3(L) 11.9 - 15.5 g/dL [facility] Hct 30.9(L) 35.6 - 45.5 % [facility] Plt 148(L) 150 - 400 K/cumm [facility] MPV 11.3 9.1 - 12.3 fL [facility] RBC 3.05(L) 3.90 - 5.20 M/cumm [facility] MCV 101.3(H) 81.3 - 96.4 fL [facility] MCH 33.8(H) 27.1 - 33.3 pg [facility] MCHC 33.3 32.3 - 35.7 g/dL [facility] RDW CV 13.8 11.1 - 14.9 % [facility] RDW SD 51.1(H) 35.7 - 48.1 fL [facility] NRBC abs 0.00 0.00 - 0.01 K/cumm [facility] Blood 06/10/2025 7:39 PM COUPON AND BOND COLLECTION CLERK 06/10/2025 8:25 PM COUPON AND BOND COLLECTION CLERK us Yuliana Whittaker MD LAB BLOOD ORDERABLES Final Result [facility] [place] [address] * Phosphorus (06/10/2025 7:39 PM COUPON AND BOND COLLECTION CLERK) Pathologist [facility] Phosphorus, pl 2.7 2.3 - 4.5 mg/dL Blood 06/10/2025 7:39 PM COUPON AND BOND COLLECTION CLERK 06/10/2025 8:23 PM COUPON AND BOND COLLECTION CLERK Yuliana Whittaker MD LAB BLOOD ORDERABLES Final Result Performing Organization Address City/[facility]/ZIP Co de Phone Number [facility] [place] [address] * Magnesium (06/10/2025 7:39 PM COUPON AND BOND COLLECTION CLERK) [facility] Magnesium 1.9 1.4 - 2.5 mg/dL Blood 06/10/2025 7:39 PM COUPON AND BOND COLLECTION CLERK 06/10/2025 8:23 PM COUPON AND BOND COLLECTION CLERK Yuliana Whittaker MD LAB BLOOD ORDERABLES Final Result Performing Organization Address [facility] de Phone Number [facility] [place] [address] * (ABNORMAL) Basic metabolic panel (06/10/2025 7:39 PM COUPON AND BOND COLLECTION CLERK) [facility] Sodium 132(L) 135 - 145 mmol/L Potassium, pl 4.2 3.3 - 4.9 mmol/L [facility] Chloride 98 97 - 110 mmol/L [facility] CO2 26 22 - 32 mmol/L [facility] Anion gap 8 2 - 15 mmol/L [facility] BUN 20 6 - 25 mg/dL [facility] Creatinine 1.17(H) 0.60 - 1.10 mg/dL [facility] Glucose 139 70 - 199 mg/dL [facility] Comment: Interpretive Data Fasting glucose >/= 126 mg/dl is diagnostic for diabetes. Fasting is defined as no caloric intake for at least 8 hours. Fasting glucose between 100 mg/dl to 125 mg/dl is diagnostic of prediabetes. In a patient with classic symptoms of hyperglycemia or hyperglycemic crisis, a random glucose >/= 200 mg/dl is diagnostic for diabetes. In the absence of unequivocal hyperglycemia, results should be confirmed by repeat testing. The classification and Diagnosis of Diabetes Diabetes Care 2021; 46: S19-S40. Current interpretive data was last revised 2022. Calcium 9.1 8.5 - 10.3 mg/dL [facility] Blood 06/10/2025 7:39 PM COUPON AND BOND COLLECTION CLERK 06/10/2025 8:23 PM COUPON AND BOND COLLECTION CLERK us Yuliana Whittaker MD LAB BLOOD ORDERABLES Final Result [facility] Department [place] [address] * (ABNORMAL) Differential, auto (06/10/2025 7:30 AM COUPON AND BOND COLLECTION CLERK) Neutrophil abs 6.71(H) 1.50 - 6.50 K/cumm Imm gran abs 0.03 0.00 - 0.10 K/cumm [facility] Lymphocyte abs 1.29 0.80 - 3.30 K/cumm [facility] Monocyte abs 0.65 0.20 - 0.80 K/cumm [facility] Eosinophil abs 0.04 0.00 - 0.50 K/cumm [facility] Basophil abs 0.04 0.00 - 0.10 K/cumm [facility] Neutrophil pct 76.6 % [facility] Comment: Interpretive Data Percent cell count reference ranges are not reported, since discordance with absolute values may lead to misinterpretation of CBC data. Current Interpretive Data was last revised on 2017. Imm gran pct 0.3 % [facility] Comment: Interpretive Data Percent cell count reference ranges are not reported, since discordance with absolute values may lead to misinterpretation of CBC data. Current Interpretive Data was last revised on 2017. Lymphocyte pct 14.7 % [facility] Comment: Interpretive Data Percent cell count reference ranges are not reported, since discordance with absolute values may lead to misinterpretation of CBC data. Current Interpretive Data was last revised on 2017. Monocyte pct 7.4 % [facility] Comment: Interpretive Data Percent cell count reference ranges are not reported, since discordance with absolute values may lead to misinterpretation of CBC data. Current Interpretive Data was last revised on 2017. Eosinophil pct 0.5 % [facility] Comment: Interpretive Data Percent cell count reference ranges are not reported, since discordance with absolute values may lead to misinterpretation of CBC data. Current Interpretive Data was last revised on 2017. Basophil pct 0.5 % [facility] Comment: Interpretive Data Percent cell count reference ranges are not reported, since discordance with absolute values may lead to misinterpretation of CBC data. Current Interpretive Data was last revised on 2017. Blood 06/10/2025 7:30 AM COUPON AND BOND COLLECTION CLERK 06/10/2025 7:47 AM COUPON AND BOND COLLECTION CLERK us Yuliana Whittaker MD LAB BLOOD ORDERABLES Final Result [facility] Department [place] [address] * (ABNORMAL) CBC with auto differential (06/10/2025 7:30 AM COUPON AND BOND COLLECTION CLERK) WBC 8.76 3.80 - 9.90 K/cumm Hgb 11.8(L) 11.9 - 15.5 g/dL [facility] Hct 36.6 35.6 - 45.5 % [facility] Plt 144(L) 150 - 400 K/cumm [facility] MPV 11.3 9.1 - 12.3 fL [facility] RBC 3.49(L) 3.90 - 5.20 M/cumm [facility] MCV 104.9(H) 81.3 - 96.4 fL [facility] MCH 33.8(H) 27.1 - 33.3 pg [facility] MCHC 32.2(L) 32.3 - 35.7 g/dL [facility] RDW CV 13.7 11.1 - 14.9 % [facility] RDW SD 53.2(H) 35.7 - 48.1 fL [facility] NRBC abs 0.00 0.00 - 0.01 K/cumm [facility] Blood 06/10/2025 7:30 AM COUPON AND BOND COLLECTION CLERK 06/10/2025 7:47 AM COUPON AND BOND COLLECTION CLERK us Yuliana Whittaker MD LAB BLOOD ORDERABLES Final Result Performing Organization Address City/[facility] Co de Phone Number [facility] [place] [address] * (ABNORMAL) eGFR (06/10/2025 6:24 AM COUPON AND BOND COLLECTION CLERK) eGFR 47(L) >=60 mL/min/1. 73 m2 Comment: Interpretive Data Reference Interval Normal >/= 90 mL/min/1.73m2 Mildly decreased* 60 - 89 mL/min/1.73m2 Mildly to moderately decreased 45 - 59 mL/min/1.73m2 Moderately to severely decreased 30 - 44 mL/min/1.73m2 Severely decreased 15 - 29 mL/min/1.73m2 Kidney Failure < 15 mL/min/1.73m2 *Relative to young adult level Estimated glomerular filtration rate is determined by the 2020 CKD-EPI equation recommended by the National Kid[employer] (A Unifying Approach to GFR Estimation: Recommendations of the NKF-ASK Task Force on Reassessing the Inclusion of Race in Diagnosing Kidney Disease, JASN 2020). The CKD-EPI equation should not be used for patients with unstable renal function and has not been validated in children and those over 70. Current interpretive data was last reviewed 2021. Blood 06/10/2025 6:24 AM COUPON AND BOND COLLECTION CLERK 06/10/2025 7:34 AM COUPON AND BOND COLLECTION CLERK Yuliana Whittaker MD LAB BLOOD ORDERABLES Final Result [facility] Department [place] [address] * Phosphorus (06/10/2025 6:24 AM COUPON AND BOND COLLECTION CLERK) Phosphorus, pl 3.2 2.3 - 4.5 mg/dL Blood 06/10/2025 6:24 AM COUPON AND BOND COLLECTION CLERK 06/10/2025 7:34 AM COUPON AND BOND COLLECTION CLERK Yuliana Whittaker MD LAB BLOOD ORDERABLES Final Result [facility] Department [place] [address] * Magnesium (06/10/2025 6:24 AM COUPON AND BOND COLLECTION CLERK) [facility] Magnesium 1.9 1.4 - 2.5 mg/dL Blood 06/10/2025 6:24 AM COUPON AND BOND COLLECTION CLERK 06/10/2025 7:34 AM COUPON AND BOND COLLECTION CLERK Yuliana Whittaker MD LAB BLOOD ORDERABLES Final Result Performing Organization Address [facility] Co de Phone Number [facility] Department [place] [address] * (ABNORMAL) Basic metabolic panel (06/10/2025 6:24 AM COUPON AND BOND COLLECTION CLERK) [facility] Sodium 132(L) 135 - 145 mmol/L Potassium, pl 4.2 3.3 - 4.9 mmol/L [facility] Chloride 98 97 - 110 mmol/L [facility] CO2 27 22 - 32 mmol/L [facility] Anion gap 7 2 - 15 mmol/L [facility] BUN 18 6 - 25 mg/dL [facility] Creatinine 1.13(H) 0.60 - 1.10 mg/dL [facility] Glucose 134 70 - 199 mg/dL [facility] Comment: Interpretive Data Fasting glucose >/= 126 mg/dl is diagnostic for diabetes. Fasting is defined as no caloric intake for at least 8 hours. Fasting glucose between 100 mg/dl to 125 mg/dl is diagnostic of prediabetes. In a patient with classic symptoms of hyperglycemia or hyperglycemic crisis, a random glucose >/= 200 mg/dl is diagnostic for diabetes. In the absence of unequivocal hyperglycemia, results should be confirmed by repeat testing. The classification and Diagnosis of Diabetes Diabetes Care 2021; 46: S19-S40. Current interpretive data was last revised 2022. Calcium 9.1 8.5 - 10.3 mg/dL [facility] Blood 06/10/2025 6:24 AM COUPON AND BOND COLLECTION CLERK 06/10/2025 7:34 AM COUPON AND BOND COLLECTION CLERK us Yuliana Whittaker MD LAB BLOOD ORDERABLES Final Result [facility] Department [place] [address] * MS AN PROCEDURE PLACEHOLDER (06/09/2025 12:07 PM COUPON AND BOND COLLECTION CLERK) Narrative Earl Stephenson MD - 06/09/2025 12:07 PM COUPON AND BOND COLLECTION CLERK Earl Stephenson MD 06/09/2025 3:28 PM Peripheral Block Patient location during procedure: PACU Reason for block: post-op pain management per surgeon request Ultrasound image in chart or stored: yes Block type: single shot Laterality: left Block type: fascia iliaca nerve block Staff: Supervising provider: Earl Stephenson MD Placed by: Resident: Darrell Erwin MD Procedure prep: Preprocedure checklist: patient identified, procedure contraindications assessed, site marked, procedure consent, surgical consent, IV checked, risks, benefits and alternatives discussed, monitors and equipment checked and timeout performed Patient position: supine Procedure performed while patient: sedate with meaningful contact Monitoring: ECG, oximetry and blood pressure Supplemental O2: nasal cannula Prep solution: chlorhexidine/alcohol PPE: provider hat/mask, sterile gloves and sterile probe cover and gel Peripheral nerve block: Technique: ultrasound guided Needle type: insulated, short-bevel and echogenic Needle gauge: 22 G Needle length: 50 mm Injection assessment: injection made incrementally with constant monitoring, negative aspiration for heme, no paresthesias noted, normal resistance to injection and see flowsheet for medication details Assessment: Block success: full evaluation pending Events: patient tolerated procedure well with no complications Additional comments: Consent obtained preop us Bo Anna MD ANESTHESIA ORDERABLES Edited Re sult - Final * FL Fluoroscopy < 1 Hour (06/09/2025 10:00 AM COUPON AND BOND COLLECTION CLERK) Narrative [facility] - 06/09/2025 10:04 AM COUPON AND BOND COLLECTION CLERK The images from this study are not interpreted by Radiology. Please refer to the physician's procedure / OR operative note. us Berna Case MD IMG FLUOROSCOPY MS OCEDURES Final Result [facility] * MS AN ELECTIVE ENDOTRACHEAL AIRWAY, MS AN PROCEDURE PLACEHOLDER (06/09/2025 8:57 AM COUPON AND BOND COLLECTION CLERK) Narrative Lester Gongora III, CRNA - 06/09/2025 8:57 AM COUPON AND BOND COLLECTION CLERK Lester Gongora III, CRNA 06/09/2025 8:58 AM Airway Patient location: OR Urgency: elective Indications for airway management: anesthesia Difficult airway: no Staff: Placed by: APPARATUS LINEMAN: Lester Gongora III, CRNA Emergent airway documentation: Risks and benefits discussed: yes Consent obtained: yes Consent given by: patient Airway prep: Preoxygenated: yes Patient position: sniffing MILS maintained throughout: yes Mask difficulty assessment: 1 - vent by mask Spontaneous ventilation during airway: absent Sedation level during airway: GA Final airway details: Final airway type: endotracheal airway Tube type: ETT ETT size: 7.0 mm Cuffed: yes Technique used for successful ETT placement: video laryngoscopy Insertion site: oral Blade type: Alejandra Video blade type: Saxena Blade size: 3 Cormack-Lehane (video): grade I - full view of glottis Cuff volume: 10 mL Cuff inflated with: air ETT to lips: 21 cm Placement verified by: auscultation Airway secured with: silk tape Number of attempts: 1 us Bo Anna MD ANESTHESIA ORDERABLES Final Res ult * MS CRITICAL CARE ILL/INJURED PATIENT INIT 30-74 MIN (06/09/2025 7:37 AM COUPON AND BOND COLLECTION CLERK) Narrative Ed Salter MD - 06/09/2025 7:37 AM COUPON AND BOND COLLECTION CLERK Ed Salter MD 06/10/2025 7:37 AM Critical Care Performed by: Ed Salter MD Authorized by: Ed Salter MD Critical care provider statement: As reflected in the history, physical exam, orders, notes, and/or MDM, I was personally present while the patient was critically ill and provided critical care services for 40 minutes, excluding time involved in separately billable procedures. Critical care was necessary to treat or prevent imminent or life-threatening deterioration of the following condition(s): severe traumatic condition and severe long-bone fracture Critical care was time spent by me providing the following: serial bedside patient exams and interpretation of bedside monitors, imaging, and arterial/venous lab draws acute pain control I provided emergent necessary critical care medicine services to this patient. I spent time documenting in the medical record. I spent time discussing the management of this critically ill patient with consultants and the medical staff. us Ed Salter MD IN CLINIC/BEDSIDE ORD ERABLES Final Result * XR Scapula Right Complete (06/09/2025 3:12 AM COUPON AND BOND COLLECTION CLERK) Anatomical Region Laterality Modality Scapula, Body Right Computed Radiogr aphy 06/09/2025 3:58 AM COUPON AND BOND COLLECTION CLERK Impressions 06/09/2025 10:32 AM COUPON AND BOND COLLECTION CLERK FINDINGS/IMPRESSION: There is a persistent cortical irregularity of the lateral aspect of the scapula best appreciated on the Y-view which could represent a fracture. No other fractures are noted. If there is further clinical suspicion, a dedicated CT can be obtained. Dictated by: Robb Hunter M.D. (Ramanan) The radiology attending physician has personally reviewed this study, and had reviewed and/or edited this written report and agrees with it. Electronically signed by: Jb Crawford M.D. Narrative 06/09/2025 10:32 AM COUPON AND BOND COLLECTION CLERK EXAMINATION: XR SCAPULA RIGHT COMPLETE HISTORY: Fall, possible scapular fracture. COMPARISON: 06/08/2025 CT Procedure Note Jb Crawford MD - 06/09/2025 EXAMINATION: XR SCAPULA RIGHT COMPLETE HISTORY: Fall, possible scapular fracture. COMPARISON: 06/08/2025 CT IMPRESSION: FINDINGS/IMPRESSION: There is a persistent cortical irregularity of the lateral aspect of the scapula best appreciated on the Y-view which could represent a fracture. No other fractures are noted. If there is further clinical suspicion, a dedicated CT can be obtained. Dictated by: Robb Hunter M.D. (Ramanan) The radiology attending physician has personally reviewed this study, and had reviewed and/or edited this written report and agrees with it. Electronically signed by: Jb Crawford M.D. us Harman Ramesh MD IMG XR PROCEDURES Final R esult * XR Elbow Left 1 View (06/08/2025 11:45 PM COUPON AND BOND COLLECTION CLERK) Anatomical Region Laterality Modality Elbow Left Computed Radiogr aphy 06/09/2025 12:0 2 AM COUPON AND BOND COLLECTION CLERK Impressions 06/09/2025 10:32 AM COUPON AND BOND COLLECTION CLERK FINDINGS/IMPRESSION: Left femur/hip: Vascular calcifications. There is a minimally displaced fracture of the left femur lesser trochanter. No pelvic fractures are seen. The femoral head is seated in the acetabula. Left humerus/radius and ulna/elbow: Osteopenia. Again seen are comminuted intra-articular fractures of the lateral humeral condyle and the olecranon process with displacement of the olecranon process fracture posteriorly. The proximal humerus and distal radius and ulna are intact. Dictated by: Robb Hunter M.D. (Ramanan) The radiology attending physician has personally reviewed this study, and had reviewed and/or edited this written report and agrees with it. Electronically signed by: Jb Crawford M.D. Narrative 06/09/2025 10:32 AM COUPON AND BOND COLLECTION CLERK EXAMINATION: XR FEMUR LEFT 2 OR MORE VIEWS, XR HUMERUS LEFT 2 OR MORE VIEWS, XR RADIUS ULNA LEFT 2 VIEWS, XR ELBOW LEFT 1 VIEW, XR HIP LEFT 1 VIEW HISTORY: Fall COMPARISON: Same-day CT Procedure Note Jb Crawford MD - 06/09/2025 EXAMINATION: XR FEMUR LEFT 2 OR MORE VIEWS, XR HUMERUS LEFT 2 OR MORE VIEWS, XR RADIUS ULNA LEFT 2 VIEWS, XR ELBOW LEFT 1 VIEW, XR HIP LEFT 1 VIEW HISTORY: Fall COMPARISON: Same-day CT IMPRESSION: FINDINGS/IMPRESSION: Left femur/hip: Vascular calcifications. There is a minimally displaced fracture of the left femur lesser trochanter. No pelvic fractures are seen. The femoral head is seated in the acetabula. Left humerus/radius and ulna/elbow: Osteopenia. Again seen are comminuted intra-articular fractures of the lateral humeral condyle and the olecranon process with displacement of the olecranon process fracture posteriorly. The proximal humerus and distal radius and ulna are intact. Dictated by: Robb Hunter M.D. (Ramanan) The radiology attending physician has personally reviewed this study, and had reviewed and/or edited this written report and agrees with it. Electronically signed by: Jb Crawford M.D. Sergo Roque MD IMG XR PROCEDURES Ewa l Result * XR Femur Left 2 or More Views (06/08/2025 11:45 PM COUPON AND BOND COLLECTION CLERK) Anatomical Region Laterality Modality Lower Extremities, Thigh, Femur Left Computed Radiography 06/09/2025 12:0 2 AM COUPON AND BOND COLLECTION CLERK Impressions 06/09/2025 10:32 AM COUPON AND BOND COLLECTION CLERK FINDINGS/IMPRESSION: Left femur/hip: Vascular calcifications. There is a minimally displaced fracture of the left femur lesser trochanter. No pelvic fractures are seen. The femoral head is seated in the acetabula. Left humerus/radius and ulna/elbow: Osteopenia. Again seen are comminuted intra-articular fractures of the lateral humeral condyle and the olecranon process with displacement of the olecranon process fracture posteriorly. The proximal humerus and distal radius and ulna are intact. Dictated by: Robb Hunter M.D. (Ramanan) The radiology attending physician has personally reviewed this study, and had reviewed and/or edited this written report and agrees with it. Electronically signed by: Jb Crawford M.D. Narrative 06/09/2025 10:32 AM COUPON AND BOND COLLECTION CLERK EXAMINATION: XR FEMUR LEFT 2 OR MORE VIEWS, XR HUMERUS LEFT 2 OR MORE VIEWS, XR RADIUS ULNA LEFT 2 VIEWS, XR ELBOW LEFT 1 VIEW, XR HIP LEFT 1 VIEW HISTORY: Fall COMPARISON: Same-day CT Procedure Note Jb Crawford MD - 06/09/2025 EXAMINATION: XR FEMUR LEFT 2 OR MORE VIEWS, XR HUMERUS LEFT 2 OR MORE VIEWS, XR RADIUS ULNA LEFT 2 VIEWS, XR ELBOW LEFT 1 VIEW, XR HIP LEFT 1 VIEW HISTORY: Fall COMPARISON: Same-day CT IMPRESSION: FINDINGS/IMPRESSION: Left femur/hip: Vascular calcifications. There is a minimally displaced fracture of the left femur lesser trochanter. No pelvic fractures are seen. The femoral head is seated in the acetabula. Left humerus/radius and ulna/elbow: Osteopenia. Again seen are comminuted intra-articular fractures of the lateral humeral condyle and the olecranon process with displacement of the olecranon process fracture posteriorly. The proximal humerus and distal radius and ulna are intact. Dictated by: Robb Hunter M.D. (Ramanan) The radiology attending physician has personally reviewed this study, and had reviewed and/or edited this written report and agrees with it. Electronically signed by: Jb Crawford M.D. Sergo Roque MD IMG XR PROCEDURES Ewa l Result * XR Hip Left 1 View (06/08/2025 11:45 PM COUPON AND BOND COLLECTION CLERK) Anatomical Region Laterality Modality Lower Extremities, Hip, Pelvis Left C omputed Radiography 06/09/2025 12:0 2 AM COUPON AND BOND COLLECTION CLERK Impressions 06/09/2025 10:32 AM COUPON AND BOND COLLECTION CLERK FINDINGS/IMPRESSION: Left femur/hip: Vascular calcifications. There is a minimally displaced fracture of the left femur lesser trochanter. No pelvic fractures are seen. The femoral head is seated in the acetabula. Left humerus/radius and ulna/elbow: Osteopenia. Again seen are comminuted intra-articular fractures of the lateral humeral condyle and the olecranon process with displacement of the olecranon process fracture posteriorly. The proximal humerus and distal radius and ulna are intact. Dictated by: Robb Hunter M.D. (Ramanan) The radiology attending physician has personally reviewed this study, and had reviewed and/or edited this written report and agrees with it. Electronically signed by: Jb Crawford M.D. Narrative 06/09/2025 10:32 AM COUPON AND BOND COLLECTION CLERK EXAMINATION: XR FEMUR LEFT 2 OR MORE VIEWS, XR HUMERUS LEFT 2 OR MORE VIEWS, XR RADIUS ULNA LEFT 2 VIEWS, XR ELBOW LEFT 1 VIEW, XR HIP LEFT 1 VIEW HISTORY: Fall COMPARISON: Same-day CT Procedure Note Jb Crawford MD - 06/09/2025 EXAMINATION: XR FEMUR LEFT 2 OR MORE VIEWS, XR HUMERUS LEFT 2 OR MORE VIEWS, XR RADIUS ULNA LEFT 2 VIEWS, XR ELBOW LEFT 1 VIEW, XR HIP LEFT 1 VIEW HISTORY: Fall COMPARISON: Same-day CT IMPRESSION: FINDINGS/IMPRESSION: Left femur/hip: Vascular calcifications. There is a minimally displaced fracture of the left femur lesser trochanter. No pelvic fractures are seen. The femoral head is seated in the acetabula. Left humerus/radius and ulna/elbow: Osteopenia. Again seen are comminuted intra-articular fractures of the lateral humeral condyle and the olecranon process with displacement of the olecranon process fracture posteriorly. The proximal humerus and distal radius and ulna are intact. Dictated by: Robb Hunter M.D. (Ramanan) The radiology attending physician has personally reviewed this study, and had reviewed and/or edited this written report and agrees with it. Electronically signed by: Jb Crawford M.D. Sergo Roque MD IMG XR PROCEDURES Ewa l Result * XR Radius Ulna Left 2 Views (06/08/2025 11:45 PM COUPON AND BOND COLLECTION CLERK) Anatomical Region Laterality Modality Upper Extremities, Forearm Left Compu emma Radiography 06/09/2025 12:0 2 AM COUPON AND BOND COLLECTION CLERK Impressions 06/09/2025 10:32 AM COUPON AND BOND COLLECTION CLERK FINDINGS/IMPRESSION: Left femur/hip: Vascular calcifications. There is a minimally displaced fracture of the left femur lesser trochanter. No pelvic fractures are seen. The femoral head is seated in the acetabula. Left humerus/radius and ulna/elbow: Osteopenia. Again seen are comminuted intra-articular fractures of the lateral humeral condyle and the olecranon process with displacement of the olecranon process fracture posteriorly. The proximal humerus and distal radius and ulna are intact. Dictated by: Robb Hunter M.D. (Ramanan) The radiology attending physician has personally reviewed this study, and had reviewed and/or edited this written report and agrees with it. Electronically signed by: Jb Crawford M.D. Narrative 06/09/2025 10:32 AM COUPON AND BOND COLLECTION CLERK EXAMINATION: XR FEMUR LEFT 2 OR MORE VIEWS, XR HUMERUS LEFT 2 OR MORE VIEWS, XR RADIUS ULNA LEFT 2 VIEWS, XR ELBOW LEFT 1 VIEW, XR HIP LEFT 1 VIEW HISTORY: Fall COMPARISON: Same-day CT Procedure Note Jb Crawford MD - 06/09/2025 EXAMINATION: XR FEMUR LEFT 2 OR MORE VIEWS, XR HUMERUS LEFT 2 OR MORE VIEWS, XR RADIUS ULNA LEFT 2 VIEWS, XR ELBOW LEFT 1 VIEW, XR HIP LEFT 1 VIEW HISTORY: Fall COMPARISON: Same-day CT IMPRESSION: FINDINGS/IMPRESSION: Left femur/hip: Vascular calcifications. There is a minimally displaced fracture of the left femur lesser trochanter. No pelvic fractures are seen. The femoral head is seated in the acetabula. Left humerus/radius and ulna/elbow: Osteopenia. Again seen are comminuted intra-articular fractures of the lateral humeral condyle and the olecranon process with displacement of the olecranon process fracture posteriorly. The proximal humerus and distal radius and ulna are intact. Dictated by: Robb Hunter M.D. (Ramanan) The radiology attending physician has personally reviewed this study, and had reviewed and/or edited this written report and agrees with it. Electronically signed by: Jb Crawford M.D. Sergo Roque MD IMG XR PROCEDURES Ewa l Result * XR Humerus Left 2 or More Views (06/08/2025 11:45 PM COUPON AND BOND COLLECTION CLERK) Anatomical Region Laterality Modality Upper Extremities, Upper Arm Left Com puted Radiography 06/09/2025 12:0 2 AM COUPON AND BOND COLLECTION CLERK Impressions 06/09/2025 10:32 AM COUPON AND BOND COLLECTION CLERK FINDINGS/IMPRESSION: Left femur/hip: Vascular calcifications. There is a minimally displaced fracture of the left femur lesser trochanter. No pelvic fractures are seen. The femoral head is seated in the acetabula. Left humerus/radius and ulna/elbow: Osteopenia. Again seen are comminuted intra-articular fractures of the lateral humeral condyle and the olecranon process with displacement of the olecranon process fracture posteriorly. The proximal humerus and distal radius and ulna are intact. Dictated by: Robb Hunter M.D. (Ramanan) The radiology attending physician has personally reviewed this study, and had reviewed and/or edited this written report and agrees with it. Electronically signed by: Jb Crawford M.D. Narrative 06/09/2025 10:32 AM COUPON AND BOND COLLECTION CLERK EXAMINATION: XR FEMUR LEFT 2 OR MORE VIEWS, XR HUMERUS LEFT 2 OR MORE VIEWS, XR RADIUS ULNA LEFT 2 VIEWS, XR ELBOW LEFT 1 VIEW, XR HIP LEFT 1 VIEW HISTORY: Fall COMPARISON: Same-day CT Procedure Note Jb Crawford MD - 06/09/2025 EXAMINATION: XR FEMUR LEFT 2 OR MORE VIEWS, XR HUMERUS LEFT 2 OR MORE VIEWS, XR RADIUS ULNA LEFT 2 VIEWS, XR ELBOW LEFT 1 VIEW, XR HIP LEFT 1 VIEW HISTORY: Fall COMPARISON: Same-day CT IMPRESSION: FINDINGS/IMPRESSION: Left femur/hip: Vascular calcifications. There is a minimally displaced fracture of the left femur lesser trochanter. No pelvic fractures are seen. The femoral head is seated in the acetabula. Left humerus/radius and ulna/elbow: Osteopenia. Again seen are comminuted intra-articular fractures of the lateral humeral condyle and the olecranon process with displacement of the olecranon process fracture posteriorly. The proximal humerus and distal radius and ulna are intact. Dictated by: Robb Hunter M.D. (Ramanan) The radiology attending physician has personally reviewed this study, and had reviewed and/or edited this written report and agrees with it. Electronically signed by: Jb Crawford M.D. Sergo Roque MD IMG XR PROCEDURES Ewa l Result * Check Sample (06/08/2025 11:21 PM COUPON AND BOND COLLECTION CLERK) ABO Rh O Positive [facility] HCLL OTHER 06/08/2025 11:2 1 PM COUPON AND BOND COLLECTION CLERK 06/08/2025 11:39 PM COUPON AND BOND COLLECTION CLERK Sergo Roque MD LAB BLOOD ORDERABLES F inal Result [facility] Department [place] [address] [facility] * CT Head and Cervical Spine WO Contrast (06/08/2025 11:18 PM COUPON AND BOND COLLECTION CLERK) Anatomical Region Laterality Modality Head and Neck N/A Computed Tomogra phy 06/09/2025 12:1 2 AM COUPON AND BOND COLLECTION CLERK Impressions 06/09/2025 9:16 AM COUPON AND BOND COLLECTION CLERK 1. No acute intracranial hemorrhage, mass effect, or midline shift. 2. No acute fracture of the cervical spine. 3. Severe cerebral volume loss with morphologic features that can be seen in normal pressure hydrocephalus. Recommend correlation with symptomatology. Dictated by: Neel Rodriguez MD The radiology attending physician has personally reviewed this study, and had reviewed and/or edited this written report and agrees with it. Electronically signed by: Richard Cordova M.D. Narrative 06/09/2025 9:16 AM COUPON AND BOND COLLECTION CLERK EXAMINATION: 1. CT head without contrast 2. CT of the cervical spine without contrast HISTORY: 89-year-old female presenting as a transfer after a fall. TECHNIQUE: CT of the head was performed with images acquired from skull base to vertex without intravenous contrast. CT of the cervical spine was performed according to the standard protocol without intravenous contrast. COMPARISON: No prior relevant imaging is available for comparison at the time of dictation. FINDINGS: HEAD: There is no acute intracranial hemorrhage, mass effect, or midline shift. There is severe brain parenchymal volume loss with ventriculomegaly and mildly dilated sylvian fissures. There is an acute callosal angle and a partially empty sella. The duncan-white differentiation is maintained. There is severe periventricular and deep white matter hypoattenuation, which is nonspecific but likely represents chronic small vessel disease. 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 There are lens replacements. There is mucosal thickening in the paranasal sinuses. The mastoid air cells are clear. No acute fracture of the calvarium is identified. CERVICAL SPINE: No spondylolisthesis of the cervical spine. Normal vertebral heights of the cervical spine. No acute fracture of the cervical spine. 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 The craniocervical junction is unremarkable. There is multilevel degenerative disc disease of the cervical spine, worst and severe at C5-C6. There is multilevel uncovertebral and facet arthropathy in the cervical spine. No high-grade spinal canal stenosis in the cervical spine. There is severe neuroforamenal stenosis at the right C3-C6 neural foramen. There is biapical pleural-parenchymal scarring. Partially imaged left central venous catheter. There is calcification of the carotid arteries. Procedure Note Richard Cordova MD - 06/09/2025 EXAMINATION: 1. CT head without contrast 2. CT of the cervical spine without contrast HISTORY: 89-year-old female presenting as a transfer after a fall. TECHNIQUE: CT of the head was performed with images acquired from skull base to vertex without intravenous contrast. CT of the cervical spine was performed according to the standard protocol without intravenous contrast. COMPARISON: No prior relevant imaging is available for comparison at the time of dictation. FINDINGS: HEAD: There is no acute intracranial hemorrhage, mass effect, or midline shift. There is severe brain parenchymal volume loss with ventriculomegaly and mildly dilated sylvian fissures. There is an acute callosal angle and a partially empty sella. The duncan-white differentiation is maintained. There is severe periventricular and deep white matter hypoattenuation, which is nonspecific but likely represents chronic small vessel disease. 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 There are lens replacements. There is mucosal thickening in the paranasal sinuses. The mastoid air cells are clear. No acute fracture of the calvarium is identified. CERVICAL SPINE: No spondylolisthesis of the cervical spine. Normal vertebral heights of the cervical spine. No acute fracture of the cervical spine. 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 The craniocervical junction is unremarkable. There is multilevel degenerative disc disease of the cervical spine, worst and severe at C5-C6. There is multilevel uncovertebral and facet arthropathy in the cervical spine. No high-grade spinal canal stenosis in the cervical spine. There is severe neuroforamenal stenosis at the right C3-C6 neural foramen. There is biapical pleural-parenchymal scarring. Partially imaged left central venous catheter. There is calcification of the carotid arteries. IMPRESSION: 1. No acute intracranial hemorrhage, mass effect, or midline shift. 2. No acute fracture of the cervical spine. 3. Severe cerebral volume loss with morphologic features that can be seen in normal pressure hydrocephalus. Recommend correlation with symptomatology. Dictated by: Neel Rodriguez MD The radiology attending physician has personally reviewed this study, and had reviewed and/or edited this written report and agrees with it. Electronically signed by: Richard Cordova M.D. us Harman Ramesh MD IMG CT PROCEDURES Final R esult * CT Chest Abdomen Pelvis W Contrast (06/08/2025 11:18 PM [employer] AND BOND COLLECTION CLERK) Anatomical Region Laterality Modality Body N/A Computed Tomogra phy 06/09/2025 1:19 AM [employer] AND BOND COLLECTION CLERK Impressions 06/09/2025 11:02 AM [employer] AND BOND COLLECTION CLERK 1. Nondisplaced intertrochanteric fracture of the left hip. 2. Cortical irregularity in the right scapula could represent a scapular fracture, recommend correlation with point tenderness. The Non Critical results were discussed with Dr. Ramesh by Dr. Robb Hunter M.D. (Ramanan) on 06/09/2025 1:18 AM. Dictated by: Robb Hunter M.D. (Ramanan) The radiology attending physician has personally reviewed this study, and had reviewed and/or edited this written report and agrees with it. Electronically signed by: Jb Crawford M.D. Narrative 06/09/2025 11:02 AM [employer] AND BOND COLLECTION CLERK EXAMINATION: Computed tomography of the chest, abdomen and pelvis with intravenous contrast HISTORY: 89-year-old female with medical history of sick sinus syndrome, hypertension, atrial fibrillation presenting to the emergency department after a fall while gardening. Noted to have a left comminuted distal humerus fracture. TECHNIQUE: Transaxial computed tomographic images of the chest, abdomen and pelvis were obtained with intravenous contrast according to the standard protocol after the administration of 80 mL Opti-Ray 350 intravenous contrast. COMPARISON: Same day radiographs FINDINGS: Chest: The central airways are patent. Bilateral apical lung and right upper lobe scarring. Mild bibasilar atelectasis. No pleural effusion or pneumothorax. The heart size is enlarged. No pericardial effusion. 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 Coronary artery and aortic atherosclerotic calcifications. The thoracic aorta is tortuous. The imaged thyroid is normal. Esophagus normal in course and caliber. No axillary, supraclavicular or mediastinal lymphadenopathy. Abdomen/Pelvis: Scattered hepatic cysts. The gallbladder is normal. The spleen is normal. The kidneys enhance symmetrically without hydronephrosis. Bilateral renal cysts. 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 Mild biliary ductal dilatation. The stomach is normal in course and caliber. No pneumoperitoneum. Corcoran catheter in place, the bladder is decompressed. Diverticulosis without diverticulitis. The small bowel is normal in course and caliber without evidence of obstruction. The appendix is not seen. Abdominal aortic atherosclerotic calcifications. The origins of the celiac, superior and inferior mesenteric arteries are normal. The portal and splenic veins are patent. No abdominal or pelvic lymphadenopathy. Mild mesenteric and omental edema. Multilevel degenerative disc disease. Diffuse osteopenia. Cortical irregularity in the right scapula could represent a fracture (series 2, image 7). Left hip lesser trochanter fracture. Procedure Note Jb Crawford MD - 06/09/2025 EXAMINATION: Computed tomography of the chest, abdomen and pelvis with intravenous contrast HISTORY: 89-year-old female with medical history of sick sinus syndrome, hypertension, atrial fibrillation presenting to the emergency department after a fall while gardening. Noted to have a left comminuted distal humerus fracture. TECHNIQUE: Transaxial computed tomographic images of the chest, abdomen and pelvis were obtained with intravenous contrast according to the standard protocol after the administration of 80 mL Opti-Ray 350 intravenous contrast. COMPARISON: Same day radiographs FINDINGS: Chest: The central airways are patent. Bilateral apical lung and right upper lobe scarring. Mild bibasilar atelectasis. No pleural effusion or pneumothorax. The heart size is enlarged. No pericardial effusion. 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 Coronary artery and aortic atherosclerotic calcifications. The thoracic aorta is tortuous. The imaged thyroid is normal. Esophagus normal in course and caliber. No axillary, supraclavicular or mediastinal lymphadenopathy. Abdomen/Pelvis: Scattered hepatic cysts. The gallbladder is normal. The spleen is normal. The kidneys enhance symmetrically without hydronephrosis. Bilateral renal cysts. 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 Mild biliary ductal dilatation. The stomach is normal in course and caliber. No pneumoperitoneum. Corcoran catheter in place, the bladder is decompressed. Diverticulosis without diverticulitis. The small bowel is normal in course and caliber without evidence of obstruction. The appendix is not seen. Abdominal aortic atherosclerotic calcifications. The origins of the celiac, superior and inferior mesenteric arteries are normal. The portal and splenic veins are patent. No abdominal or pelvic lymphadenopathy. Mild mesenteric and omental edema. Multilevel degenerative disc disease. Diffuse osteopenia. Cortical irregularity in the right scapula could represent a fracture (series 2, image 7). Left hip lesser trochanter fracture. IMPRESSION: 1. Nondisplaced intertrochanteric fracture of the left hip. 2. Cortical irregularity in the right scapula could represent a scapular fracture, recommend correlation with point tenderness. The Non Critical results were discussed with Dr. Ramesh by Dr. Robb Hunter M.D. (Ramanan) on 06/09/2025 1:18 AM. Dictated by: Robb Hunter M.D. (Ramanan) The radiology attending physician has personally reviewed this study, and had reviewed and/or edited this written report and agrees with it. Electronically signed by: Jb Crawford M.D. us Harman Ramesh MD IMG CT PROCEDURES Final R esult * CT Elbow Left WO Contrast (06/08/2025 11:18 PM [employer] AND BOND COLLECTION CLERK) Anatomical Region Laterality Modality Upper Extremities Left Computed Tomog johana 06/09/2025 12:5 9 AM [employer] AND BOND COLLECTION CLERK Impressions 06/09/2025 8:22 AM [employer] AND BOND COLLECTION CLERK 1. Comminuted and mildly displaced intra-articular fractures of the trochlea and capitellum, which extend into the medial and lateral epicondyles respectively. 2. Comminuted and mildly displaced intra-articular fracture of the olecranon process. 3. Possible nondisplaced fracture of the radial head. Dictated by: Neel Rodriguez MD The radiology attending physician has personally reviewed this study, and had reviewed and/or edited this written report and agrees with it. Electronically signed by: Fausto Madrid M.D. Narrative 06/09/2025 8:22 AM [employer] AND BOND COLLECTION CLERK EXAMINATION: Computed tomography of the left elbow without intravenous contrast HISTORY: 89-year-old female presenting after a fall with a elbow fracture. TECHNIQUE: Transaxial computed tomographic images of the left elbow were obtained without intravenous contrast according to the standard protocol. COMPARISON: Same-day radiographs FINDINGS: There is a comminuted and mildly displaced intra-articular fracture of the trochlea, which extends to the medial epicondyle. There is also a comminuted and mildly displaced intra-articular fracture of the capitellum, which extends into the lateral epicondyle. There is a comminuted and mildly displaced intra-articular fracture of the olecranon process, which extends into the trochlear notch. There is possibly a nondisplaced fracture of the radial head. 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 There is a moderate elbow effusion with soft tissue of the elbow. The muscle bulk is normal. Procedure Note Fausto Madrid MD PhD - 06/09/2025 EXAMINATION: Computed tomography of the left elbow without intravenous contrast HISTORY: 89-year-old female presenting after a fall with a elbow fracture. TECHNIQUE: Transaxial computed tomographic images of the left elbow were obtained without intravenous contrast according to the standard protocol. COMPARISON: Same-day radiographs FINDINGS: There is a comminuted and mildly displaced intra-articular fracture of the trochlea, which extends to the medial epicondyle. There is also a comminuted and mildly displaced intra-articular fracture of the capitellum, which extends into the lateral epicondyle. There is a comminuted and mildly displaced intra-articular fracture of the olecranon process, which extends into the trochlear notch. There is possibly a nondisplaced fracture of the radial head. 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 There is a moderate elbow effusion with soft tissue of the elbow. The muscle bulk is normal. IMPRESSION: 1. Comminuted and mildly displaced intra-articular fractures of the trochlea and capitellum, which extend into the medial and lateral epicondyles respectively. 2. Comminuted and mildly displaced intra-articular fracture of the olecranon process. 3. Possible nondisplaced fracture of the radial head. Dictated by: Neel Rodriguez MD The radiology attending physician has personally reviewed this study, and had reviewed and/or edited this written report and agrees with it. Electronically signed by: Fausto Madrid M.D. us Harman Ramesh MD IMG CT PROCEDURES Final R esult * (ABNORMAL) POCT creatinine (06/08/2025 10:25 PM [employer] BOND COLLECTION CLERK) Creatinine POC 1.3(H) 0.6 - 1.1 mg/dL Blood 06/08/2025 10:2 5 PM [employer] BOND COLLECTION CLERK 06/08/2025 10:25 PM [employer] AND BOND COLLECTION CLERK Jacqui MCKEE LAB POCT ORDERABLES - DEVICE Final Result [facility] Department [place] [address] * (ABNORMAL) eGFR (06/08/2025 10:16 PM COUP[employer] AND BOND COLLECTION CLERK) eGFR 41(L) >=60 mL/min/1. 73 m2 Comment: Interpretive Data Reference Interval Normal >/= 90 mL/min/1.73m2 Mildly decreased* 60 - 89 mL/min/1.73m2 Mildly to moderately decreased 45 - 59 mL/min/1.73m2 Moderately to severely decreased 30 - 44 mL/min/1.73m2 Severely decreased 15 - 29 mL/min/1.73m2 Kidney Failure < 15 mL/min/1.73m2 *Relative to young adult level Estimated glomerular filtration rate is determined by the 2020 CKD-EPI equation recommended by the National Kid[employer] (A Unifying Approach to GFR Estimation: Recommendations of the NKF-ASK Task Force on Reassessing the Inclusion of Race in Diagnosing Kidney Disease, JASN 2020). The CKD-EPI equation should not be used for patients with unstable renal function and has not been validated in children and those over 70. Current interpretive data was last reviewed 2021. Blood 06/08/2025 10:1 6 PM [employer] BOND COLLECTION CLERK 06/08/2025 10:43 PM [employer]PON AND BOND COLLECTION CLERK us Harman Ramesh MD LAB BLOOD ORDERABLES Ewa burk Result [facility] Department [place] [address] * (ABNORMAL) Differential, auto (06/08/2025 10:16 PM [employer] BOND COLLECTION CLERK) Neutrophil abs 9.83(H) 1.50 - 6.50 K/cumm Imm gran abs 0.05 0.00 - 0.10 K/cumm [facility] Lymphocyte abs 0.89 0.80 - 3.30 K/cumm [facility] Monocyte abs 0.65 0.20 - 0.80 K/cumm [facility] Eosinophil abs 0.01 0.00 - 0.50 K/cumm [facility] Basophil abs 0.07 0.00 - 0.10 K/cumm [facility] Neutrophil pct 85.5 % [facility] Comment: Interpretive Data Percent cell count reference ranges are not reported, since discordance with absolute values may lead to misinterpretation of CBC data. Current Interpretive Data was last revised on 2017. Imm gran pct 0.4 % [facility] Comment: Interpretive Data Percent cell count reference ranges are not reported, since discordance with absolute values may lead to misinterpretation of CBC data. Current Interpretive Data was last revised on 2017. Lymphocyte pct 7.7 % [facility] Comment: Interpretive Data Percent cell count reference ranges are not reported, since discordance with absolute values may lead to misinterpretation of CBC data. Current Interpretive Data was last revised on 2017. Monocyte pct 5.7 % [facility] Comment: Interpretive Data Percent cell count reference ranges are not reported, since discordance with absolute values may lead to misinterpretation of CBC data. Current Interpretive Data was last revised on 2017. Eosinophil pct 0.1 % [facility] Comment: Interpretive Data Percent cell count reference ranges are not reported, since discordance with absolute values may lead to misinterpretation of CBC data. Current Interpretive Data was last revised on 2017. Basophil pct 0.6 % [facility] Comment: Interpretive Data Percent cell count reference ranges are not reported, since discordance with absolute values may lead to misinterpretation of CBC data. Current Interpretive Data was last revised on 2017. Blood 06/08/2025 10:1 6 PM [employer] BOND COLLECTION CLERK 06/08/2025 10:43 PM [employer] AND BOND COLLECTION CLERK Harman Ramesh MD LAB BLOOD ORDERABLES Ewa l Result [facility] Department [place] [address] * (ABNORMAL) Urinalysis reflex to microscopic and culture Urine (06/08/2025 10:16 PM [employer] AND BOND COLLECTION CLERK) Color, ur Straw Yellow Clarity, ur Clear Clear [facility] Specific gravity, ur 1.022 1.003 - 1.030 [facility] pH, urine 6.5 [facility] Comment: Interpretive Data U rine pH is affected by diet, medications, systemic acid-base disturbances, and renal tubular function. pH may affect urinary stone formation. For example, urine pH below 6.0 may help reduce the tendency for calcium phosphate stones and pH greater than 6.0 may reduce the tendency for uric acid stone formation. Source: [facility] Current Interpretive Data was last revised on 2017 Protein, ur ql 1+(A) Negative [facility] Glucose, ur ql Negative Negative [facility] Ketones, ur Negative Negative [facility] Bilirubin, ur Negative Negative [facility] Blood, ur Trace(A) Negative [facility] Urobilinogen, ur <2.0 <2.0 mg/dL [facility] Nitrite, ur Negative Negative [facility] Leukocyte esterase, ur 1+(A) Negative [facility] UA reflex comment Reflex to microscopic UA will be performed. [facility] Urine 06/08/2025 10:1 6 PM [employer] BOND COLLECTION CLERK 06/08/2025 10:30 PM [employer] AND BOND COLLECTION CLERK Harman Ramesh MD LAB MICROBIOLOGY - GENERA L ORDERABLES Final Result Performing Organization Address [facility] de Phone Number [facility] Department [place] [address] * (ABNORMAL) CBC with auto differential (06/08/2025 10:16 PM COUP[employer] AND BOND COLLECTION CLERK) [facility] WBC 11.50(H) 3.80 - 9.90 K/cumm Hgb 13.5 11.9 - 15.5 g/dL [facility] Hct 39.8 35.6 - 45.5 % [facility] Plt 164 150 - 400 K/cumm [facility] MPV 10.9 9.1 - 12.3 fL [facility] RBC 3.96 3.90 - 5.20 M/cumm [facility] MCV 100.5(H) 81.3 - 96.4 fL [facility] MCH 34.1(H) 27.1 - 33.3 pg [facility] MCHC 33.9 32.3 - 35.7 g/dL [facility] RDW CV 13.9 11.1 - 14.9 % [facility] RDW SD 51.6(H) 35.7 - 48.1 fL [facility] NRBC abs 0.00 0.00 - 0.01 K/cumm [facility] Blood 06/08/2025 10:1 6 PM [employer] BOND COLLECTION CLERK 06/08/2025 10:43 PM [employer] AND BOND COLLECTION CLERK Harman Ramesh MD LAB BLOOD ORDERABLES Ewa l Result Performing Organization Address [facility] Co de Phone Number [facility] Department [place] [address] * (ABNORMAL) Urinalysis, microscopic only (06/08/2025 10:16 PM COUP[employer] AND BOND COLLECTION CLERK) Pathologist [facility] WBC, ur 11-20(A) 0 - 5 /HPF RBC, ur 11-20(A) 0 - 2 /HPF [facility] Epithelial cells, squamous, ur 1-5 0 - 5 /HPF [facility] Bacteria, ur 1+(A) [facility] Culture Reflex Comment Reflex to urine culture will be performed. [facility] Urine 06/08/2025 10:1 6 PM [employer] AND BOND COLLECTION CLERK 06/08/2025 10:30 PM [employer] AND BOND COLLECTION CLERK Result [facility] us Harman Ramesh MD LAB URINE ORDERABLES Ewa l Result Performing Organization Address [facility] Co de Phone Number [facility] [place] [address] * aPTT (06/08/2025 10:16 PM COUP[employer] AND BOND COLLECTION CLERK) aPTT 27 26 - 38 sec Comment: Interpretive Data Heparin therapeutic range: 66.0 - 100.0 seconds. Range based on correlation with therapeutic heparin activity range of 0.3 - 0.7 Units/mL. Blood 06/08/2025 10:1 6 PM [employer] AND BOND COLLECTION CLERK 06/08/2025 10:45 PM [employer] AND BOND COLLECTION CLERK Result [facility] Harman Ramesh MD LAB BLOOD ORDERABLES Ewa l Result Performing Organization Address [facility] de Phone Number [facility] [place] [address] * Protime-INR (06/08/2025 10:16 PM COUP[employer] AND BOND COLLECTION CLERK) PT 12.7 10.2 - 13.5 sec INR 1.13 0.90 - 1.20 [facility] Comment: Interpretive data Oral anticoagulant therapeutic ranges: Venous thromboembolism prophylaxis or treatment: 2.0-3.0 CARDIOLOGY Standard range: 2.0-3.0 High-intensity range: 2.5-3.5 Refer to indication-specific guidelines for appropriate target ranges for prosthetic heart valve replacement. Current interpretive data was last revised on 2019. Blood 06/08/2025 10:1 6 PM [employer] AND BOND COLLECTION CLERK 06/08/2025 10:45 PM [employer] AND BOND COLLECTION CLERK us Harman Ramesh MD LAB BLOOD ORDERABLES Ewa l Result Performing Organization Address [facility] Co de Phone Number [facility] Department [place] [address] * Type and screen (06/08/2025 10:16 PM COUP[employer] AND BOND COLLECTION CLERK) ABO Rh O Positive Griffin, indirect Negative [facility] Blood 06/08/2025 10:1 6 PM [employer] AND BOND COLLECTION CLERK 06/08/2025 10:57 PM [employer] AND BOND COLLECTION CLERK Narrative [facility] - 06/08/2025 11:55 PM COUP[employer] AND BOND COLLECTION CLERK Has the patient had Daratumumab or Isatuximab in the past 6 months?->Unknown Harman Ramesh MD LAB BLOOD BANK TEST ORDER KVNG Final Result Performing Organization Address [facility] Co de Phone Number [facility] [place] [place] [address] * Urine culture Urine (06/08/2025 10:16 PM COUP[employer] AND BOND COLLECTION CLERK) Report Final Report: No growth Urine 06/08/2025 10:1 6 PM [employer] BOND COLLECTION CLERK 06/09/2025 2:01 AM [employer] AND BOND COLLECTION CLERK Narrative [facility] - 06/10/2025 7:04 AM [employer] AND BOND COLLECTION CLERK Urine culture reflexed based upon urinalysis results. Testing performed by [facility] ([phone]) Harman Ramesh MD LAB MICROBIOLOGY - GENERA L ORDERABLES Final Result Performing Organization Address [facility] Co de Phone Number [facility] Department [place] [address] * (ABNORMAL) Comprehensive metabolic panel (06/08/2025 10:16 PM COUP[employer] AND BOND COLLECTION CLERK) Sodium 141 135 - 145 mmol/L Potassium, pl 4.5 3.3 - 4.9 mmol/L [facility] Chloride 105 97 - 110 mmol/L [facility] CO2 24 22 - 32 mmol/L [facility] Anion gap 12 2 - 15 mmol/L [facility] BUN 30(H) 6 - 25 mg/dL [facility] Creatinine 1.26(H) 0.60 - 1.10 mg/dL [facility] Glucose 148 70 - 199 mg/dL [facility] Comment: Interpretive Data Fasting glucose >/= 126 mg/dl is diagnostic for diabetes. Fasting is defined as no caloric intake for at least 8 hours. Fasting glucose between 100 mg/dl to 125 mg/dl is diagnostic of prediabetes. In a patient with classic symptoms of hyperglycemia or hyperglycemic crisis, a random glucose >/= 200 mg/dl is diagnostic for diabetes. In the absence of unequivocal hyperglycemia, results should be confirmed by repeat testing. The classification and Diagnosis of Diabetes Diabetes Care 202; 46: S19-S40. Current interpretive data was last revised 2022. Calcium 9.6 8.5 - 10.3 mg/dL [facility] Bilirubin, total 0.6 0.1 - 1.2 mg/dL [facility] Protein, pl 7.0 6.5 - 8.5 g/dL [facility] Albumin 4.2 3.5 - 5.0 g/dL [facility] Alk phos 98 40 - 130 Units/L [facility] ALT 24 7 - 45 Units/L [facility] AST 26 10 - 45 Units/L [facility] Blood 06/08/2025 10:1 6 PM [employer] B[employer] COLLECTION CLERK 06/08/2025 10:43 PM [employer] AND BOND COLLECTION CLERK us Harman Ramesh MD LAB BLOOD ORDERABLES Ewa l Result [facility] Department [place] [address] * XR Outside Reference (06/08/2025 9:54 PM COUP[employer] AND BOND COLLECTION CLERK) Impressions [email or web address] - 06/08/2025 9:54 PM [employer] AND BOND COLLECTION CLERK These images are for Reference purposes only and have not been reviewed by [facility]. There will be no report generated by a [facility] Radiologist. Narrative RAD_PACS_BJ - 06/08/2025 9:54 PM COUPON AND BOND COLLECTION CLERK EXAMINATION: Images For Reference Purposes Only Harman Ramesh MD IMG XR PROCEDURES Final R esult Performing Organization Address [facility] de Phone Number [email or web address]_[facility] * XR Outside Reference (06/08/2025 9:52 PM COUPON AND BOND COLLECTION CLERK) Impressions RAD_PACS[facility] - 06/08/2025 9:52 PM COUPON AND BOND COLLECTION CLERK These images are for Reference purposes only and have not been reviewed by [facility]. There will be no report generated by a [facility] Radiologist. Narrative RAD_PACS_[facility] - 06/08/2025 9:52 PM COUPON AND BOND COLLECTION CLERK EXAMINATION: Images For Reference Purposes Only Harman Rmaesh MD IMG XR PROCEDURES Final R esult Performing Organization Address [facility] de Phone Number RAD_PACS[facility] * XR Outside Reference (06/08/2025 9:49 PM COUPON AND BOND COLLECTION CLERK) Impressions RAD_PACS[facility] - 06/08/2025 9:49 PM COUPON AND BOND COLLECTION CLERK These images are for Reference purposes only and have not been reviewed by [facility]. There will be no report generated by a [facility] Radiologist. Narrative RAD_PACS_[facility] - 06/08/2025 9:49 PM COUPON AND BOND COLLECTION CLERK EXAMINATION: Images For Reference Purposes Only Harman Ramesh MD IMG XR PROCEDURES Final R esult Performing Organization Address [facility] de Phone Number RAD_PACS[facility] * XR Outside Reference (06/08/2025 9:48 PM COUPON AND BOND COLLECTION CLERK) Impressions RAD_PACS[facility] - 06/08/2025 9:48 PM COUPON AND BOND COLLECTION CLERK These images are for Reference purposes only and have not been reviewed by [facility]. There will be no report generated by a [facility] Radiologist. Narrative RAD_PACS_[facility] - 06/08/2025 9:48 PM COUPON AND BOND COLLECTION CLERK EXAMINATION: Images For Reference Purposes Only Harman Ramesh MD IMG XR PROCEDURES Final R esult Performing Organization Address [facility] de Phone Number RAD_PACS[facility] * XR Outside Reference (06/08/2025 9:45 PM COUPON AND BOND COLLECTION CLERK) Impressions RAD_PACS[facility] - 06/08/2025 9:45 PM COUPON AND BOND COLLECTION CLERK These images are for Reference purposes only and have not been reviewed by [facility]. There will be no report generated by a [facility] Radiologist. Narrative RAD_PACS[facility] - 06/08/2025 9:45 PM COUPON AND BOND COLLECTION CLERK EXAMINATION: Images For Reference Purposes Only Harman Ramesh MD IMG XR PROCEDURES Final R esult Performing Organization Address [facility] de Phone Number RAD_PACS[facility] * XR Outside Reference (06/08/2025 9:42 PM COUPON AND BOND COLLECTION CLERK) Impressions RAD_PACS[facility] - 06/08/2025 9:42 PM COUPON AND BOND COLLECTION CLERK These images are for Reference purposes only and have not been reviewed by [facility]. There will be no report generated by a [facility] Radiologist. Narrative RAD_PACS_[facility] - 06/08/2025 9:42 PM COUPON AND BOND COLLECTION CLERK EXAMINATION: Images For Reference Purposes Only Harman Ramesh MD IMG XR PROCEDURES Final R esult Performing Organization Address [facility] de Phone Number RAD_PACS_[facility] from Last 3 Months Insurance [facility] MEDICARE MEDICARE FOR[facility]LY [facility] Advance Directives For more information, please contact: [phone] * Full Code (Latest Code Status on File) Date Activated Date Inactivated Comments 06/09/2025 4:25 AM 06/12/2025 8:16 PM Care Teams Optical Fabricator Relationship Specialty Start Date End Date Alexandr Peres MD [address] [place] [address] PCP - General Family Practice 03/25/25
--- OUTSIDE RECORDS SUMMARY | 2025-07-15 14:40 | XMS_ITS | Patient Health Record ---
Author Organization [facility] Address [address] [place] [address] Care Team Providers Care Assembler Bicycle Name Role Phone Fouzia BATEMAN, [place] Primary Care Provider Unavailab Paul Norris Unavailable [phone] Allergies Allergen (clinical drug ingredient) Drug/Non Drug [...] ms QTC Calculation(Bazett) 652 ms Calculated P [place] 34 degrees Calculated R [place] 10 degrees Calculated T [place] 252 degrees Diagnosis Atrial-paced rhythm with prolonged AV conduction Nonspecific T wave abnormality Prolonged QT Abnormal ECG When compared with ECG of 27-JUL-2023 11:18, Nonspecific T wave abnormality, improved in Lateral leads QT has lengthened Confirmed by Jewel Ro ([id number]) on 08/11/2024 2:59:26 PM Signed by: Jewel [...] BILIRUBIN, TOTAL 0.5 0.0 - 1.2 mg/dL Reason For Referral No Information Medications Medication [...] 2.5 MG TAKE 1 TABLET BY BENJY TH TWICE A DAY FOR 30 DAYS; Duration: [...] 07/17/2010 Administered Flu Vac Unknown 04/20/2012 Administered louie who i s butter grader Flu Vac Unknown 05/17/2013 Administered butter grader s office Flu Vac High dose Unknown 05/07/2014 Administered in [facility] office Flu Vac High dose Unknown 04/21/2015 [...] Status W/U Status Risk Notes Problem Hyperglycemia (50365359) Hyperglycemia (R73.9) Active confirmed Problem Hyperlipidemia (06703310) Other and unspecified hyperlipidemia (E78.5) Active confirmed Problem Osteoporosis (59191945) Osteoporosis (M81.0) Active confirmed Problem Essential hypertension (84490944) Essential hypertension (I10) Active confirmed Problem Ataxia (58105572) Ataxia (R27.0) Active confirm ed Problem Atrial fibrillation (27811993) Paroxysmal a-fib (I48.0) Active confirmed Problem Macrocytosis - no anemia (677086437) Macrocytosis without anemia (D75.89) Active confirmed Problem Abnormal ECG (837902056) Abnormal ECG (R94.31) Active confirmed Problem Basal cell carcinoma of skin (453016395) Basal cell carcinoma of other specified sites of skin (C44.91) Active confirmed Problem Lymphedema (212178033) Other lymphedema (I89.0) Active confirmed Problem Sacroiliitis (06405380) Sacroiliitis (M46.1) Active confirmed Problem Difficulty walking (957341807) Difficulty walking (R26.2) Active confirmed Problem Atherosclerosis of aorta (50938076) Aortic atherosclerosis (I70.0) Active confirmed Problem Chronic kidney disease stage 3A (disorder) (164423223) Stage 3a chronic kidney disease (CKD) (N18.31) Active confirmed Vital Signs Heart Rate 65 /min 11/21/2024 Respiratory Rate 12 /min 11/21/2024 Blood pressure diastolic 95 mm Hg 11/21/2024 Height 63 in 11/21/2024 Blood pressure systolic 140 mm Hg 11/21/2024 Encounters Encounter Location Date Provider Diagnosis [facility] [address] [place] [address] 11/21/2024 Paul Fragoso Difficulty walking R 26.2 ; Essential hypertension I10 ; Paroxysmal a-fib I48.0 ; Stage 3a chronic kidney disease (CKD) N18.31 ; Ataxia R27.0 and Aortic atherosclerosis I70.0 [facility] [address] [place] [address] 07/16/2024 Paul Fragoso [facility] [address] [place] [address] 07/22/2024 Paul Mindell Assessments Encounter Date Diagnosis (ICD Code) Assessment Notes Treatment Notes Treatment Clinical Notes Section Notes 11/21/2024 Essential hypertension (ICD-10 - I10) 11/21/2024 Difficulty walking (ICD-10 - R26.2) already evaluated by neuro moving to [facility] encouraged to get staff radiation therapist board certified and let them directcare 11/21/2024 Paroxysmal a-fib (ICD-10 - I48.0) 11/21/2024 Stage 3a chronic kidney disease (CKD) (ICD-10 - N18.31) 11/21/2024 Ataxia (ICD-10 - R27.0) 11/21/2024 Aortic atherosclerosis (ICD-10 - I70.0) Plan Of Treatment Pending Test Test Name Order Date COLONOSCOPY AND BIOPSY 01/05/2016 HGB A1C 11/04/2021 VITAMIN B12 12/02/2022 MEASLES/RUBEOLA IGG 11/08/2018 Insurance Providers Payer Name Payer Address Payer Phone Subscriber Number Group Number Insured Name Patient Relationship to Insured Coverage Start Date Coverage End Date MEDICARE [address] [place], [place] [id number] Kell Bey Self - patient is the insured [address] [place], [place] [id number] Kell Bey Self - patient is the insured Medical (General) History Medical History History ICD Code hyperlipidemia diverticulosis hypertension basal cell carcinoma/?? melanoma it situ dr jaky mac r arm sadoff osteoporosis lymphedema idiopathic r arm Former smoker Z87.891 [facility] dwp 07/01 Abnormal ECG ceellulitis r ue 08/[address] paige afib dr ro ckd 3a Surgical History Surgery Date(Month/Year) cataracts achilles tendon r l wrist fx dr alegre
--- OUTSIDE RECORDS SUMMARY | 2025-07-15 14:40 | XMS_ITS | Patient Health Record ---
Author Organization [facility] [place] Address [address] [place] [address] Care Team Providers Care Systems Trainer Name Role Phone Fouzia BATEMAN, [place] Primary Care Provider UnavailSamir Bojorquez Unavailable [phone] Reason For Referral No Information Medications Medication SIG (Take, Route, Frequency, Duration) Notes Start Date End Date Status Vitamin C 500 MG Capsule as directed Orally Active Doxycycline Hyclate 100 MG Solution Reconstituted as directed Intravenous BID Active Soolantra 1 % Cream 1 application Externally Once a day Active Verapamil HCl ER 180 MG Tablet Extended Release 1 tablet Orally Once a day; Duration: 30 day(s) Active Misc Natural Products - Solution as directed Externally 0.05% hands use as directed Active Benicar 5 MG Tablet 1 tablet Orally Once a day; Duration: 30 day(s) 10 mg Active Misc Natural Products - Capsule as directed Orally FLEANIDE 100 MG BID Active Triamcinolone Acetonide 0.025 % Lotion 1 application Externally Once a day; Duration: 7 day(s) Not-Taking/ PRN Eliquis 5 MG Tablet as directed Orally 75 BID Active Bryhali 0.01 % Lotion 1 application Externally Once a day use as directed hands Not-Taking/ PRN Atorvastatin Calcium 40 MG Tablet 1 tablet Orally Once a day; Duration: 30 day(s) Active Impoyz 0.025 % Cream 1 application Externally Twice a day; Duration: 14 day(s) use as directed Not-Taking/ PRN Biotin 10 MG Tablet 1 tablet Orally Once a day; Duration: 30 day(s) Active hydroCHLOROthiazide 12.5 MG Tablet 1 tablet in the morning Orally Once a day; Duration: 30 day(s) Active Social History Tobacco Use: Social History Observation Description Date Details (start date - stop date) Former Smoker NA - NA Social History Drugs/Alcohol: Social Info Question Answer Notes Alcohol Screen Did you have a drink containing alcohol in the past year? No Points 0 Interpretation Negative Tobacco Use: Social Info Question Answer Notes Tobacco Use/Smoking Are you a former smoker How long has it been since you last smoked? 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 Plan Of Treatment Pending Test Test Name Order Date X ray : Hand 3V, left 10/15/2020 X ray : Hand 3V, right 10/15/2020 X ray : CHEST PA LATERAL 10/15/2020 BLOOD DRAW 10/15/2020 C3 Complement 10/15/2020 Insurance Providers Payer Name Payer Address Payer Phone Subscriber Number Group Number Insured Name Patient Relationship to Insured Coverage Start Date Coverage End Date MEDICARE [address] [place], [place] [id number] Kell Bey Self - patient is the insured 3 [facility] [address] [place], [place] [id number] Kell Bey Self - patient is the insured 1 Medical (General) History Medical History History ICD Code High Blood Pressure High Cholesterol atrial fibrillation, status post pacemak er placed, allergies include: latex and adhesives history of scoliosis left knee meniscus tear questionable Raynaud's phenomenon erythema and rash of her fisher ds and left earlobe, she has seen a manager community relations and she had a biopsy right hand that showed interface spongiotic dermatitis. Surgical History Surgery Date(Month/Year) colonoscopy done (-)
--- OUTSIDE RECORDS SUMMARY | 2025-07-15 14:40 | XMS_ITS | Patient Health Record ---
Author Organization [facility] [employer] [facility] Address [address] [place] [address] Care Team Providers Care Cement Truck Driver Name Role Phone PERFECTO BATEMAN, SABINE Primary Care Provider UnavailMarko Knapp Unavailable [phone] Allergies Allergen (clinical drug ingredient) Drug/Non Drug [...] Notes Problem Flatulence, eructation and gas pain (219921717) Flatulence, eructation and gas pain (R14.3) Active confirmed Plan Of Treatment No Information Insurance Providers Payer Name Payer Address Payer Phone Subscriber Number Group Number Insured Name Patient Relationship to Insured Coverage Start Date Coverage End Date MEDICARE PRIMARY [employer] [address] [place] [address] [id number] JOSE BUSH Self - patient is the insured 3 [employer] [address] [place] [address] [id number] JOSE BUSH Self - patient is the insured 7 7 [employer] [address] [place] [address] [id number] JOSE BUSH Self - patient is the insured 3 Medical (General) History Medical History History ICD Code Hypertension Hyperlipidemia Osteoporosis Basal cell carcinoma Lymphedema Hypercholesterolemia Surgical History Surgery Date(Month/Year) Cataract removal Achilles tendon repair Left wrist fracture
== END 2025-07-15 14:27 | disposition home or self-care (01) ==
LOC: ANHFOHIMG 14:27
PROVIDERS: PCP Family Medicine; Visit Provider Nurse Practitioner Family
DX: M81.0 Age-related osteoporosis without current pathological fracture (principal); M85.851 Other specified disorders of bone density and structure, right thigh; Z78.0 Asymptomatic menopausal state; Z13.820 Encounter for screening for osteoporosis
CPT/HCPCS: 77080